=== PATIENT | female | born 1955 | race Hispanic/Latino ===

== ENCOUNTER 2020-04-28 09:59 | Observation (INO) | payer MEDICARE ==
[2020-04-28] MEDS ORDERED: ASPIRIN 325 MG TAB PO ONE (10:15)
--- NOTE | 2020-04-28 11:23 | XRay Report ---
CHEST 1 VIEW INDICATION: Chest Pain. COMPARISON: None FINDINGS: Support devices: None. Heart: Within normal limits. Lungs/Pleura: No acute air space or interstitial disease. Additional findings: None. IMPRESSION: No acute findings. Signer Name: Erik Hsu Jr, MD Signed: 04/28/2020 11:19 AM Workstation Name: [id number]
[2020-04-28 11:29] LABS: Basophils % (Auto) 0.8 % (0.0-1.8); Eosinophils # (Auto) 0.2 K/mm3 (0.0-0.4); Eosinophils % (Auto) 4.2 % (0.0-4.3); Hematocrit 41.3 % (30.3-42.9); Hemoglobin 13.8 gm/dl (10.1-14.3); Lymphocytes # (Auto) 1.8 K/mm3 (1.2-5.4); Lymphocytes % (Auto) 41.2 % (13.4-35.0); Mean Corpuscular HGB Conc 33 % (30-34); Mean Corpuscular Volume 91 fl (79-97); Monocytes # (Auto) 0.4 K/mm3 (0.0-0.8); Monocytes % (Auto) 9.5 % (0.0-7.3); Platelet Count 190 K/mm3 (140-440); Red Blood Count 4.56 M/mm3 (3.65-5.03); Red Cell Distribution Width 14.6 % (13.2-15.2)
[2020-04-28 11:47] LABS: Blood Urea Nitrogen 11 mg/dL (7-17); Calcium 9.3 mg/dL (8.4-10.2); Hemolysis Index 1
[2020-04-28 11:49] LABS: BUN/Creatinine Ratio 18
[2020-04-28 11:53] LABS: Alanine Aminotransferase 30 units/L (7-56)
[2020-04-28 11:54] LABS: Bilirubin,Direct < 0.2 mg/dL (0-0.2)
--- NOTE | 2020-04-28 14:59 | Event Note ---
ED Screening Note Date of service: 04/28/20 Time: 14:59 ED Screening Note: c/o chest pain, dizziness, and LUQ pain This initial assessment/diagnostic orders/clinical plan/treatment(s) is/are subject to change based on patients health status, clinical progression and re- assessment by fellow clinical providers in the ED. Further treatment and workup at subsequent clinical providers discretion. Patient/guardian urged not to elope from the ED as their condition may be serious if not clinically assessed and managed. Initial orders include: labs cxr ekg
[2020-04-28] MEDS ORDERED: ACETAMINOPHEN 325 MG TAB PO ONE (16:47)
[2020-04-28] MEDS ORDERED: FAMOTIDINE 20 MG TAB PO ONE (16:47)
[2020-04-28] MEDS ORDERED: MECLIZINE 25 MG TAB PO ONE (16:48)
--- NOTE | 2020-04-28 16:49 | Emergency Department Report ---
ED General Adult HPI - General Chief complaint: Chest Pain Stated complaint: DIZZY PUI?: No Time Seen by Provider: 04/28/20 16:29 Source: patient, RN notes reviewed Mode of arrival: Ambulatory Limitations: Physical Limitation - History of Present Illness Initial comments: The patient was evaluated in the emergency department for symptoms described in the history of present illness. He/she was evaluated in the context of the g lobal COVID-19 pandemic, which necessitated consideration that the patient might be at risk for infection with the virus that causes COVID-19. Institutional protocols and algorithms that pertain to the evaluation of patients at risk for COVID-19 are in a state of rapid change based on information released by regulatory bodies including the CDC and federal and state organizations. These policies and algorithms were followed during the patient's care in the emergency department. Please note that these policies, procedures and recommendations changed on a rapid basis. Patient is a 65-year-old female. She is not known to myself previously. She recently moved here from [facility]. She has a primary care doctor, but she cannot recall their name. She reports a history of hypertension, high cholesterol, congestive heart failure, does not know her ejection fraction, seizures. She presents to the ER today with a primary complaint of dizziness and feeling unsteady on her feet. This is a constant sensation, and present for the past 6 to 7 days. Denies headache, neck pain, loss of hearing. The patient also complains of left-sided chest wall pain, which moves to the left neck, left back, left superior pectoral region. Denies loss of vision, abdominal pain, irritative and obstructive urinary symptoms. No DVT or pulmonary embolism risk factors. -: Gradual Location: chest Radiation: back Quality: aching Consistency: intermittent Improves with: rest Worsens with: movement - Related Data Home Medications Medication Instructions Recorded Confirmed Last Taken Aspirin [Adult Aspirin] 81 mg PO DAILY 04/28/20 04/28/20 Unknown Atorvastatin [Lipitor Tab] 40 mg PO QHS 04/28/20 04/28/20 Unknown Diclofenac Sodium 75 mg PO DAILY 04/28/20 04/28/20 Unknown Escitalopram Oxalate [Lexapro] 20 mg PO DAILY 04/28/20 04/28/20 Unknown Phenytoin Sodium Extended (Nf) 30 mg PO DAILY 04/28/20 04/28/20 Unknown [Dilantin (Nf)] Potassium Chloride [K-Dur] 10 meq PO QDAY 04/28/20 04/28/20 Unknown levETIRAcetam [Spritam] 500 mg PO DAILY 04/28/20 04/28/20 Unknown Allergies Allergy/AdvReac Type Severity Reaction Status Date / Time No Known Allergies Allergy Unverified 04/28/20 10:11 ED Review of Systems ROS: Stated complaint: DIZZY Other details as noted in HPI Constitutional: denies: fever Eyes: denies: eye discharge, vision change ENT: denies: throat pain, dental pain Respiratory: denies: cough, wheezing Cardiovascular: chest pain Gastrointestinal: abdominal pain. denies: vomiting Neurological: weakness, abnormal gait Hematological/Lymphatic: denies: easy bleeding ED Past Medical Hx - Past Medical History Previous Medical History?: Yes Hx Hypertension: Yes Hx Congestive Heart Failure: Yes Hx Seizures: Yes - Surgical History Past Surgical History?: Yes Additional Surgical History: hysterectomy - Social History Smoking Status: Current Every Day Smoker Substance Use Type: None - Medications Home Medications: Home Medications Medication Instructions Recorded Confirmed Last Taken Type Aspirin [Adult Aspirin] 81 mg PO DAILY 04/28/20 04/28/20 Unknown History Atorvastatin [Lipitor Tab] 40 mg PO QHS 04/28/20 04/28/20 Unknown History Diclofenac Sodium 75 mg PO DAILY 04/28/20 04/28/20 Unknown History Escitalopram Oxalate [Lexapro] 20 mg PO DAILY 04/28/20 04/28/20 Unknown History Phenytoin Sodium Extended (Nf) 30 mg PO DAILY 04/28/20 04/28/20 Unknown History [Dilantin (Nf)] Potassium Chloride [K-Dur] 10 meq PO QDAY 04/28/20 04/28/20 Unknown History levETIRAcetam [Spritam] 500 mg PO DAILY 04/28/20 04/28/20 Unknown History ED Physical Exam - General Limitations: Physical Limitation General appearance: alert, in no apparent distress - Head Head exam: Present: atraumatic, normocephalic - Eye Eye exam: Present: normal appearance, PERRL, EOMI, other (Visual acuity intact to finger counting, color perception, reading at a close distance). Absent: nystagmus - ENT ENT exam: Present: normal exam, normal orophraynx, mucous membranes moist, TM's normal bilaterally, normal external ear exam, other (There is no mastoid te nderness) - Neck Neck exam: Present: normal inspection, full ROM. Absent: tenderness, meningismus - Respiratory Respiratory exam: Present: normal lung sounds bilaterally, chest wall tenderness (Reproducible left-sided chest wall pain. Chaperoned by nurse Marga Laird). Absent: respiratory distress - Cardiovascular Cardiovascular Exam: Present: normal rhythm, bradycardia, normal heart sounds. Absent: systolic murmur, diastolic murmur, rubs, gallop - GI/Abdominal GI/Abdominal exam: Present: soft, normal bowel sounds. Absent: distended, t enderness, guarding, rebound, rigid, pulsatile mass - Extremities Exam Extremities exam: Present: normal inspection, full ROM, pedal edema, other (2+ pulses noted in the bilateral upper and lower extremities. There is no palpable cord. negative Homans sign. Muscular compartments are soft. The pelvis is stable.). Absent: calf tenderness - Back Exam Back exam: Present: normal inspection, full ROM. Absent: tenderness, CVA tenderness (R), CVA tenderness (L), paraspinal tenderness, vertebral tenderness - Neurological Exam Neurological exam: Present: alert, abnormal gait (Walks with a broad-based gait and a walker), other (No facial droop. Tongue midline. Extraocular movements intact bilaterally. Facial sensation intact to light touch in V1, V2, V3 distribution bilaterally. 5 and a 5 strength in 4 extremities. Sensation intact to light touch in 4 extremities. There is past-pointing in her bilateral upper extremities. [id number] within normal limits.). Absent: motor sensory deficit - Psychiatric Psychiatric exam: Present: normal affect, normal mood - Skin Skin exam: Present: warm, dry, intact, normal color. Absent: rash ED Course Vital Signs 04/28/20 04/28/20 04/28/20 10:15 16:12 16:46 Temperature 97.8 F Pulse Rate 67 59 L 50 L Respiratory 16 15 15 Rate Blood Pressure 142/62 Blood Pressure 132/80 113/52 [Right] O2 Sat by Pulse 98 100 98 Oximetry 04/28/20 17:30 Temperature Pulse Rate Respiratory Rate Blood Pressure 147/58 Blood Pressure [Right] O2 Sat by Pulse 95 Oximetry ED Medical Decision Making - Lab Data Result diagrams: 04/28/20 10:57 04/28/20 11:00 Vital Signs 04/28/20 04/28/20 04/28/20 10:15 16:12 16:46 Temperature 97.8 F Pulse Rate 67 59 L 50 L Respiratory 16 15 15 Rate Blood Pressure 142/62 Blood Pressure 132/80 113/52 [Right] O2 Sat by Pulse 98 100 98 Oximetry 04/28/20 17:30 Temperature Pulse Rate Respiratory Rate Blood Pressure 147/58 Blood Pressure [Right] O2 Sat by Pulse 95 Oximetry Lab Results 04/28/20 04/28/20 04/28/20 Range/Units 10:57 11:00 11:00 WBC 4.4 L (4.5-11.0) K/mm3 RBC 4.56 (3.65-5.03) M/mm3 Hgb 13.8 (10.1-14.3) gm/dl Hct 41.3 (30.3-42.9) % MCV 91 (79-97) fl MCH 30 (28-32) pg MCHC 33 (30-34) % RDW 14.6 (13.2-15.2) % Plt Count 190 (140-440) K/mm3 Lymph % (Auto) 41.2 H (13.4-35.0) % Stark % (Auto) 9.5 H (0.0-7.3) % Eos % (Auto) 4.2 (0.0-4.3) % Baso % (Auto) 0.8 (0.0-1.8) % Lymph # 1.8 (1.2-5.4) K/mm3 Stark # 0.4 (0.0-0.8) K/mm3 Eos # 0.2 (0.0-0.4) K/mm3 Baso # 0.0 (0.0-0.1) K/mm3 Seg Neutrophils % 44.3 (40.0-70.0) % Seg Neutrophils # 2.0 (1.8-7.7) K/mm3 PT (12.2-14.9) Sec. INR (0.87-1.13) D-Dimer (0-234) ng/mlDDU Sodium 141 (137-145) mmol/L Potassium 3.7 (3.6-5.0) mmol/L Chloride 101.9 (98-107) mmol/L Carbon Dioxide 26 (22-30) mmol/L Anion Gap 17 mmol/L BUN 11 (7-17) mg/dL Creatinine 0.6 (0.6-1.2) mg/dL Estimated GFR > 60 ml/min BUN/Creatinine Ratio 18 % Glucose 117 H (65-100) mg/dL Calcium 9.3 (8.4-10.2) mg/dL Magnesium (1.7-2.3) mg/dL Total Bilirubin 0.30 (0.1-1.2) mg/dL Direct Bilirubin < 0.2 (0-0.2) mg/dL Indirect Bilirubin 0.1 mg/dL AST 21 (5-40) units/L ALT 30 (7-56) units/L Alkaline Phosphatase 251 H (35-129) units/L Total Creatine Kinase (30-135) units/L Troponin T < 0.010 (0.00-0.029) ng/mL NT-Pro-B Natriuret Pep 109.4 (0-900) pg/mL Total Protein 7.0 (6.3-8.2) g/dL Albumin 4.0 (3.9-5) g/dL Albumin/Globulin Ratio 1.3 % Lipase (13-60) units/L TSH (0.270-4.200) mlU/mL Urine Color (Yellow) Urine Turbidity (Clear) Urine pH (5.0-7.0) Ur Specific [place] (1.003-1.030) Urine Protein (Negative) mg/dL Urine Glucose (UA) (Negative) mg/dL Urine Ketones (Negative) mg/dL Urine Blood (Negative) Urine Nitrite (Negative) Urine Bilirubin (Negative) Urine Urobilinogen (<2.0) mg/dL Ur Leukocyte Esterase (Negative) Urine WBC (Auto) (0.0-6.0) /HPF Urine RBC (Auto) (0.0-6.0) /HPF U Epithel Cells (Auto) (0-13.0) /HPF Urine Bacteria (Auto) (Negative) /HPF Urine Mucus /HPF 04/28/20 04/28/20 04/28/20 Range/Units 16:08 16:08 16:54 WBC (4.5-11.0) K/mm3 RBC (3.65-5.03) M/mm3 Hgb (10.1-14.3) gm/dl Hct (30.3-42.9) % MCV (79-97) fl MCH (28-32) pg MCHC (30-34) % RDW (13.2-15.2) % Plt Count (140-440) K/mm3 Lymph % (Auto) (13.4-35.0) % Stark % (Auto) (0.0-7.3) % Eos % (Auto) (0.0-4.3) % Baso % (Auto) (0.0-1.8) % Lymph # (1.2-5.4) K/mm3 Stark # (0.0-0.8) K/mm3 Eos # (0.0-0.4) K/mm3 Baso # (0.0-0.1) K/mm3 Seg Neutrophils % (40.0-70.0) % Seg Neutrophils # (1.8-7.7) K/mm3 PT 13.7 (12.2-14.9) Sec. INR 1.03 (0.87-1.13) D-Dimer 135.30 (0-234) ng/mlDDU Sodium (137-145) mmol/L Potassium (3.6-5.0) mmol/L Chloride (98-107) mmol/L Carbon Dioxide (22-30) mmol/L Anion Gap mmol/L BUN (7-17) mg/dL Creatinine (0.6-1.2) mg/dL Estimated GFR ml/min BUN/Creatinine Ratio % Glucose (65-100) mg/dL Calcium (8.4-10.2) mg/dL Magnesium (1.7-2.3) mg/dL Total Bilirubin (0.1-1.2) mg/dL Direct Bilirubin (0-0.2) mg/dL Indirect Bilirubin mg/dL AST (5-40) units/L ALT (7-56) units/L Alkaline Phosphatase (35-129) units/L Total Creatine Kinase (30-135) units/L Troponin T < 0.010 (0.00-0.029) ng/mL NT-Pro-B Natriuret Pep (0-900) pg/mL Total Protein (6.3-8.2) g/dL Albumin (3.9-5) g/dL Albumin/Globulin Ratio % Lipase 13 (13-60) units/L TSH (0.270-4.200) mlU/mL Urine Color (Yellow) Urine Turbidity (Clear) Urine pH (5.0-7.0) Ur Specific [place] (1.003-1.030) Urine Protein (Negative) mg/dL Urine Glucose (UA) (Negative) mg/dL Urine Ketones (Negative) mg/dL Urine Blood (Negative) Urine Nitrite (Negative) Urine Bilirubin (Negative) Urine Urobilinogen (<2.0) mg/dL Ur Leukocyte Esterase (Negative) Urine WBC (Auto) (0.0-6.0) /HPF Urine RBC (Auto) (0.0-6.0) /HPF U Epithel Cells (Auto) (0-13.0) /HPF Urine Bacteria (Auto) (Negative) /HPF Urine Mucus /HPF 04/28/20 04/28/20 04/28/20 Range/Units 16:54 16:54 17:44 WBC (4.5-11.0) K/mm3 RBC (3.65-5.03) M/mm3 Hgb (10.1-14.3) gm/dl Hct (30.3-42.9) % MCV (79-97) fl MCH (28-32) pg MCHC (30-34) % RDW (13.2-15.2) % Plt Count (140-440) K/mm3 Lymph % (Auto) (13.4-35.0) % Stark % (Auto) (0.0-7.3) % Eos % (Auto) (0.0-4.3) % Baso % (Auto) (0.0-1.8) % Lymph # (1.2-5.4) K/mm3 Stark # (0.0-0.8) K/mm3 Eos # (0.0-0.4) K/mm3 Baso # (0.0-0.1) K/mm3 Seg Neutrophils % (40.0-70.0) % Seg Neutrophils # (1.8-7.7) K/mm3 PT (12.2-14.9) Sec. INR (0.87-1.13) D-Dimer (0-234) ng/mlDDU Sodium (137-145) mmol/L Potassium (3.6-5.0) mmol/L Chloride (98-107) mmol/L Carbon Dioxide (22-30) mmol/L Anion Gap mmol/L BUN (7-17) mg/dL Creatinine (0.6-1.2) mg/dL Estimated GFR ml/min BUN/Creatinine Ratio % Glucose (65-100) mg/dL Calcium (8.4-10.2) mg/dL Magnesium 2.20 (1.7-2.3) mg/dL Total Bilirubin (0.1-1.2) mg/dL Direct Bilirubin (0-0.2) mg/dL Indirect Bilirubin mg/dL AST (5-40) units/L ALT (7-56) units/L Alkaline Phosphatase (35-129) units/L Total Creatine Kinase 58 (30-135) units/L Troponin T (0.00-0.029) ng/mL NT-Pro-B Natriuret Pep (0-900) pg/mL Total Protein (6.3-8.2) g/dL Albumin (3.9-5) g/dL Albumin/Globulin Ratio % Lipase (13-60) units/L TSH 4.090 (0.270-4.200) mlU/mL Urine Color Straw (Yellow) Urine Turbidity Clear (Clear) Urine pH 6.0 (5.0-7.0) Ur Specific [place] 1.006 (1.003-1.030) Urine Protein <15 mg/dl (Negative) mg/dL Urine Glucose (UA) Neg (Negative) mg/dL Urine Ketones Neg (Negative) mg/dL Urine Blood Sm (Negative) Urine Nitrite Neg (Negative) Urine Bilirubin Neg (Negative) Urine Urobilinogen < 2.0 (<2.0) mg/dL Ur Leukocyte Esterase Neg (Negative) Urine WBC (Auto) 1.0 (0.0-6.0) /HPF Urine RBC (Auto) 1.0 (0.0-6.0) /HPF U Epithel Cells (Auto) 2.0 (0-13.0) /HPF Urine Bacteria (Auto) 1+ (Negative) /HPF Urine Mucus Few /HPF - EKG Data -: EKG Interpreted by Sd EKG shows normal: sinus rhythm Rate: bradycardia - EKG Data When compared to previous EKG there are: previous EKG unavailable 04/28/20 18:20 EKG #1 shows sinus rhythm, bradycardia, left axis deviation, right bundle branch block, left anterior fascicular block, low voltage, not a STEMI. There is no prior for comparison. - Radiology Data Radiology results: pending, report reviewed, image reviewed Differential diagnosis, including but not limited to: GERD, gastritis, hiatal hernia, pneumonia, acute coronary syndrome, pulmonary embolism, peripheral vertigo, central vertigo Assessment and plan: 65-year-old female, who is not currently tachycardic, tachy pneic or hypoxic, with no DVT or pulmonary embolism risk factors, low risk by Wells criteria, with a negative d-dimer, chest pain which is reproducible left- sided, but radiates to the back, abnormal EKG, negative troponin, a number of cardiovascular risk factors, moderate risk for major adverse cardiac event as per heart score, ( 4 points Moderate Score (4-6 points) Risk of MACE of 12-16.6%.) Who also complains of dizziness for 1 week. In terms of the patient's chest pain, we will admit the patient to the medical service for cardiac risk ratification. She will be given aspirin, and we will treat her pain. In terms of the patient's dizziness, uncertain of central versus peripheral cause. Symptoms present for approximately 1 week, therefore, not a TPA candidate. Her examination is not consistent or suggestive of a large vessel occlusion. Discussed plan of care with patient, who verbalized understanding, and who is amenable to this plan of care. Hospital physician, Dr. Syl Lainez to admit Has equal pulses in the upper and lower extremities, not especially hypertensive, unremarkable x-ray of the chest, therefore, this is very unlikely to be aortic disease. Critical care attestation.: If time is entered above; I have spent that time in minutes in the direct care of this critically ill patient, excluding procedure time. ED Disposition Clinical Impression: Acute chest pain, Abnormal EKG, Dizziness Disposition: OP ADMIT IP TO THIS HOSP Is pt being admited?: Yes Does the pt Need Aspirin: No Condition: Good Instructions: Chest Pain (ED) Referrals: PRIMARY CARE, [Primary Care Provider] - 3-5 Days - Assessment Assessment Interval: Baseline - Level of Consciousness 1a. Level of Consciousness: alert/keenly responsive - LOC Questions 1b. LOC Questions: answers both correctly - LOC Command 1c. LOC Commands: performs tasks correctly - Best Gaze 2. Best Gaze: normal - Visual 3. Visual: no visual loss - Facial Palsy 4. Facial Palsy: normal symmetrical movement - Motor Arm 5a. Motor Arm Left: no drift 5b. Motor Arm Right: no drift - Motor Leg 6a. Motor Leg Left: no drift 6b. Motor Leg Right: no drift - Limb Ataxia 7. Limb Ataxia: present 2 limbs - Sensory 8. Sensory: normal - Best Language 9. Best Language: no aphasia - Dysarthria 10. Dysarthria: normal - Extinction and Inattention 11. Extinction/Inattention: no abnormality - Scoring Total Score: 2 Stroke Severity: Minor Stroke
[2020-04-28 17:22] LABS: INR 1.03 (0.87-1.13)
--- NOTE | 2020-04-28 17:34 | Cat Scan Report ---
CT BRAIN: 04/28/2020 INDICATION / CLINICAL INFORMATION: dizzy, unsteady gait. COMPARISON: None available. FINDINGS: BRAIN/INTRACRANIAL STRUCTURES: Unenhanced CT images of the brain demonstrate no evidence of acute int racranial abnormality. Ventricles and sulci are within normal limits of size and shape for a patient of this age. There is no evidence of hemorrhage or mass. There are no abnormal extra-axial fluid collections. EXTRACRANIAL STRUCTURES: Unremarkable. IMPRESSION: No acute abnormality. All CT scans at this location are performed using dose reduction to ALARA by means of automated expos ure control. Signer Name: Ishaan Christiansen MD Signed: 04/28/2020 5:30 PM Workstation Name: [id number]
[2020-04-28 18:05] LABS: Bacteria,Urine 1+ /HPF (Negative); Bilirubin,Urine NEG (Negative); Blood,Urine SM (Negative); Color,Urine Straw (Yellow); Mucus,Urine FEW /HPF; Protein,Urine <15 mg/dL mg/dL (Negative); Urobilinogen,Urine < 2.0 mg/dL (<2.0)
[2020-04-28] MEDS ORDERED: ASPIRIN 81 MG TAB CHEW PO ONE (18:22)
--- NOTE | 2020-04-28 22:18 | History and Physical Report ---
History of Present Illness Date of examination: 04/28/20 Date of admission: 04/28/20 18:24 Chief complaint: Left-sided chest pain since a.m. History of present illness: 65-year-old female with history of seizure disorder, hyperlipidemia, depression comes in for left-sided chest pain since a.m. Chest pain is intermittent in nature. 5 on a scale of 1-10. Dull in character. Patient also has dizziness and slightly unsteady gait. Dizziness is been going on for 1 week. No shortness of breath no diaphoresis no radiation of chest pain. No precipitating or exacerbating factors for the chest pain. - Past Medical History Previous Medical History?: Yes Hx Hypertension: Yes Hx Congestive Heart Failure: Yes Hx Seizures: Yes - Surgical History Past Surgical History?: Yes Additional Surgical History: hysterectomy - Social History Smoking Status: Current Every Day Smoker Substance Use Type: None - Medications Home Medications: Home Medications Medication Instructions Recorded Confirmed Last Taken Type Aspirin [Adult Aspirin] 81 mg PO DAILY 04/28/20 04/28/20 Unknown History Atorvastatin [Lipitor Tab] 40 mg PO QHS 04/28/20 04/28/20 Unknown History Diclofenac Sodium 75 mg PO DAILY 04/28/20 04/28/20 Unknown History Escitalopram Oxalate [Lexapro] 20 mg PO DAILY 04/28/20 04/28/20 Unknown History Phenytoin Sodium Extended (Nf) 30 mg PO DAILY 04/28/20 04/28/20 Unknown History [Dilantin (Nf)] Potassium Chloride [K-Dur] 10 meq PO QDAY 04/28/20 04/28/20 Unknown History levETIRAcetam [Spritam] 500 mg PO DAILY 04/28/20 04/28/20 Unknown History Review of Systems ROS: Stated complaint: DIZZY Other details as noted in HPI Constitutional: denies: fever Eyes: denies: eye discharge, vision change ENT: denies: throat pain, dental pain Respiratory: denies: cough, wheezing Cardiovascular: chest pain Gastrointestinal: abdominal pain. denies: vomiting Neurological: weakness, abnormal gait Hematological/Lymphatic: denies: easy bleeding 40 Medications and Allergies Allergies Allergy/AdvReac Type Severity Reaction Status Date / Time No Known Allergies Allergy Unverified 04/28/20 10:11 Home Medications Medication Instructions Recorded Confirmed Last Taken Type Aspirin [Adult Aspirin] 81 mg PO DAILY 04/28/20 04/28/20 Unknown History Atorvastatin [Lipitor Tab] 40 mg PO QHS 04/28/20 04/28/20 Unknown History Diclofenac Sodium 75 mg PO DAILY 04/28/20 04/28/20 Unknown History Escitalopram Oxalate [Lexapro] 20 mg PO DAILY 04/28/20 04/28/20 Unknown History Phenytoin Sodium Extended (Nf) 30 mg PO DAILY 04/28/20 04/28/20 Unknown History [Dilantin (Nf)] Potassium Chloride [K-Dur] 10 meq PO QDAY 04/28/20 04/28/20 Unknown History levETIRAcetam [Spritam] 500 mg PO DAILY 04/28/20 04/28/20 Unknown History Exam - Constitutional Vitals: Temp Pulse Resp BP Pulse Ox 97.5 F L 44 L 18 134/74 99 04/28/20 20:25 04/28/20 20:25 04/28/20 20:25 04/28/20 20:25 04/28/20 20:25 General appearance: Present: no acute distress, well-nourished - EENT Eyes: Present: PERRL ENT: hearing intact, clear oral mucosa - Neck Neck: Present: supple, normal ROM - Respiratory Respiratory effort: normal Respiratory: bilateral: CTA - Cardiovascular Heart rate: 88 Rhythm: regular Heart Sounds: Present: S1 & S2. Absent: rub, click - Extremities Extremities: no ischemia, pulses intact, pulses symmetrical, No edema Peripheral Pulses: within normal limits - Abdominal General gastrointestinal: Present: soft, non-tender, non-distended, normal bowel sounds Female genitourinary: Present: normal - Integumentary Integumentary: Present: clear, warm, dry - Musculoskeletal Musculoskeletal: gait normal, strength equal bilaterally - Psychiatric Psychiatric: appropriate mood/affect, intact judgment & insight - Neurologic Neurologic: CNII-XII intact, moves all extremities - Allied Health Allied health notes reviewed: nursing, case management HEART Score - HEART Score History: Moderately suspicious Age: > 65 Risk factors: 1-2 risk factors Troponin: Troponin T < 0.010 ng/mL (0.00-0.029) 04/28/20 16:08 Troponin: 1-3x normal limit - Critical Actions Critical Actions: 4-6 pts:12-16.6% risk of adverse cardiac event. Should be admitted Results - Labs CBC & Chem 7: 04/28/20 10:57 04/29/20 06:45 Labs: Laboratory Last Values WBC 4.4 K/mm3 (4.5-11.0) L 04/28/20 10:57 RBC 4.56 M/mm3 (3.65-5.03) 04/28/20 10:57 Hgb 13.8 gm/dl (10.1-14.3) 04/28/20 10:57 Hct 41.3 % (30.3-42.9) 04/28/20 10:57 MCV 91 fl (79-97) 04/28/20 10:57 MCH 30 pg (28-32) 04/28/20 10:57 MCHC 33 % (30-34) 04/28/20 10:57 RDW 14.6 % (13.2-15.2) 04/28/20 10:57 Plt Count 190 K/mm3 (140-440) 04/28/20 10:57 Lymph % (Auto) 41.2 % (13.4-35.0) H 04/28/20 10:57 [place] % (Auto) 9.5 % (0.0-7.3) H 04/28/20 10:57 Eos % (Auto) 4.2 % (0.0-4.3) 04/28/20 10:57 Baso % (Auto) 0.8 % (0.0-1.8) 04/28/20 10:57 Lymph # 1.8 K/mm3 (1.2-5.4) 04/28/20 10:57 [place] # 0.4 K/mm3 (0.0-0.8) 04/28/20 10:57 Eos # 0.2 K/mm3 (0.0-0.4) 04/28/20 10:57 Baso # 0.0 K/mm3 (0.0-0.1) 04/28/20 10:57 Seg Neutrophils % 44.3 % (40.0-70.0) 04/28/20 10:57 Seg Neutrophils # 2.0 K/mm3 (1.8-7.7) 04/28/20 10:57 PT 13.7 Sec. (12.2-14.9) 04/28/20 16:54 INR 1.03 (0.87-1.13) 04/28/20 16:54 D-Dimer 135.30 ng/mlDDU (0-234) 04/28/20 16:54 Sodium 141 mmol/L (137-145) 04/28/20 11:00 Potassium 3.7 mmol/L (3.6-5.0) 04/28/20 11:00 Chloride 101.9 mmol/L (98-107) 04/28/20 11:00 Carbon Dioxide 26 mmol/L (22-30) 04/28/20 11:00 Anion Gap 17 mmol/L 04/28/20 11:00 BUN 11 mg/dL (7-17) 04/28/20 11:00 Creatinine 0.6 mg/dL (0.6-1.2) 04/28/20 11:00 Estimated GFR > 60 ml/min 04/28/20 11:00 BUN/Creatinine Ratio 18 % 04/28/20 11:00 Glucose 117 mg/dL (65-100) H 04/28/20 11:00 Calcium 9.3 mg/dL (8.4-10.2) 04/28/20 11:00 Magnesium 2.20 mg/dL (1.7-2.3) 04/28/20 16:54 Total Bilirubin 0.30 mg/dL (0.1-1.2) 04/28/20 11:00 Direct Bilirubin < 0.2 mg/dL (0-0.2) 04/28/20 11:00 Indirect Bilirubin 0.1 mg/dL 04/28/20 11:00 AST 21 units/L (5-40) 04/28/20 11:00 ALT 30 units/L (7-56) 04/28/20 11:00 Alkaline Phosphatase 251 units/L (35-129) H 04/28/20 11:00 Total Creatine Kinase 58 units/L (30-135) 04/28/20 16:54 Troponin T < 0.010 ng/mL (0.00-0.029) 04/28/20 16:08 NT-Pro-B Natriuret Pep 109.4 pg/mL (0-900) 04/28/20 11:00 Total Protein 7.0 g/dL (6.3-8.2) 04/28/20 11:00 Albumin 4.0 g/dL (3.9-5) 04/28/20 11:00 Albumin/Globulin Ratio 1.3 % 04/28/20 11:00 Lipase 13 units/L (13-60) 04/28/20 16:08 TSH 4.090 mlU/mL (0.270-4.200) 04/28/20 16:54 Urine Color Straw (Yellow) 04/28/20 17:44 Urine Turbidity Clear (Clear) 04/28/20 17:44 Urine pH 6.0 (5.0-7.0) 04/28/20 17:44 Ur Specific [place] 1.006 (1.003-1.030) 04/28/20 17:44 Urine Protein <15 mg/dl mg/dL (Negative) 04/28/20 17:44 Urine Glucose (UA) Neg mg/dL (Negative) 04/28/20 17:44 Urine Ketones Neg mg/dL (Negative) 04/28/20 17:44 Urine Blood Sm (Negative) 04/28/20 17:44 Urine Nitrite Neg (Negative) 04/28/20 17:44 Urine Bilirubin Neg (Negative) 04/28/20 17:44 Urine Urobilinogen < 2.0 mg/dL (<2.0) 04/28/20 17:44 Ur Leukocyte Esterase Neg (Negative) 04/28/20 17:44 Urine WBC (Auto) 1.0 /HPF (0.0-6.0) 04/28/20 17:44 Urine RBC (Auto) 1.0 /HPF (0.0-6.0) 04/28/20 17:44 U Epithel Cells (Auto) 2.0 /HPF (0-13.0) 04/28/20 17:44 Urine Bacteria (Auto) 1+ /HPF (Negative) 04/28/20 17:44 Urine Mucus Few /HPF 04/28/20 17:44 Short CBC 04/28/20 Range/Units 10:57 WBC 4.4 L (4.5-11.0) K/mm3 Hgb 13.8 (10.1-14.3) gm/dl Hct 41.3 (30.3-42.9) % Plt Count 190 (140-440) K/mm3 BMP 04/28/20 04/29/20 11:00 06:45 Sodium 141 144 Potassium 3.7 3.7 Chloride 101.9 106.7 Carbon Dioxide 26 25 BUN 11 10 Creatinine 0.6 0.5 L Glucose 117 H 110 H Calcium 9.3 8.8 Cardiac Enzymes 04/28/20 04/28/20 04/28/20 Range/Units 11:00 16:08 16:54 Total Creatine Kinase 58 (30-135) units/L Troponin T < 0.010 < 0.010 (0.00-0.029) ng/mL 04/28/20 04/28/20 04/29/20 Range/Units 21:49 22:58 06:45 Total Creatine Kinase (30-135) units/L Troponin T < 0.010 < 0.010 < 0.010 (0.00-0.029) ng/mL Liver Function 04/28/20 04/29/20 Range/Units 11:00 06:45 Total Bilirubin 0.30 0.20 (0.1-1.2) mg/dL Direct Bilirubin < 0.2 (0-0.2) mg/dL AST 21 20 (5-40) units/L ALT 30 25 (7-56) units/L Alkaline Phosphatase 251 H 212 H (35-129) units/L Albumin 4.0 3.6 L (3.9-5) g/dL Urine 04/28/20 Range/Units 17:44 Urine Color Straw (Yellow) Urine pH 6.0 (5.0-7.0) Ur Specific [place] 1.006 (1.003-1.030) Urine Protein <15 mg/dl (Negative) mg/dL Urine Glucose (UA) Neg (Negative) mg/dL - Imaging and Cardiology EKG: report reviewed (Sinus bradycardia heart rate of 48/min right bundle branch block) Chest x-ray: report reviewed CT Scan - head: report reviewed (No acute abnormalities) [place]/IV: IV Catheter Type [Left Peripheral IV Antecubital] Assessment and Plan Advance Directives: Yes (Full code) VTE prophylaxis?: Chemical Plan of care discussed with patient/family: Yes - Patient Problems (1) Acute chest pain Current Visit: Yes Status: Acute Plan to address problem: Chest pain protocol serial troponins Lexiscan in the morning (2) Dizziness Current Visit: Yes Status: Acute Plan to address problem: Possible labyrinthitis CVA unlikely Dilantin may be causing dizziness Dilantin level ordered Patient on subtherapeutic doses of Dilantin and Keppra Dilantin discontinued Keppra dose increased to 500 every 12 (3) Hyperlipidemia Current Visit: Yes Status: Chronic Qualifiers: Hyperlipidemia type: mixed hyperlipidemia Qualified Code(s): E78.2 - Mixed hyperlipidemia Plan to address problem: We will hold statins for possible myopathy (4) DVT prophylaxis Current Visit: Yes Status: Acute Plan to address problem: On heparin and GI prophylaxis
[2020-04-28] MEDS ORDERED: oxyCODONE /ACETAMINOPHEN 5-325MG TAB PO PRN (22:19)
[2020-04-28] MEDS ORDERED: HYDROmorphone 1 MG/1 ML INJ IV PRN (22:19)
[2020-04-28] MEDS ORDERED: METOCLOPRAMIDE 10 MG/2 ML INJ IV PRN (22:19)
[2020-04-28] MEDS ORDERED: ONDANSETRON 4 MG/2 ML INJ IV PRN (22:19)
[2020-04-28] MEDS ORDERED: ACETAMINOPHEN 325 MG TAB PO PRN (22:19)
[2020-04-28] MEDS ORDERED: SODIUM CHLORIDE 0.9% 1000 ML 1,000 ML IV SCH (22:30)
[2020-04-28] MEDS: HEPARIN 5,000 UNIT/1 ML VIAL SUB-Q SCH (22:58)
[2020-04-29 08:20] LABS: Alanine Aminotransferase 25 units/L (7-56); Albumin 3.6 g/dL (3.9-5); Blood Urea Nitrogen 10 mg/dL (7-17); Calcium 8.8 mg/dL (8.4-10.2); Hemolysis Index 9
[2020-04-29 08:23] LABS: BUN/Creatinine Ratio 20
[2020-04-29] MEDS ORDERED: ESCITALOPRAM 10 MG TAB PO SCH (10:00)
[2020-04-29] MEDS ORDERED: ASPIRIN EC 81 MG TAB PO SCH (10:00)
[2020-04-29] MEDS: REGADENOSON 0.4 MG/5 ML INJ IV ONE ×4 (12:51→13:33)
--- NOTE | 2020-04-29 14:59 | Treadmill Report ---
THALLIUM STRESS TEST LEFT VENTRICLE: Left ventricular chamber size is within normal spread. Perfusion study demonstrates homogeneous uptake of the tracer in all segments, no defects identified. There is normal apical thinning. Gated analysis demonstrates normal left ventricular systolic function, ejection fraction 62%. CONCLUSION: Normal myocardial perfusion study. JOB# [id number] CA/NTS
[2020-04-29] MEDS: FAMOTIDINE 20 MG/2 ML INJ IV SCH ×2 (15:56→23:00)
[2020-04-29] MEDS: HEPARIN 5,000 UNIT/1 ML VIAL SUB-Q SCH ×2 (15:58→21:59)
[2020-04-29] MEDS: levETIRAcetam 500 MG TAB PO SCH ×2 (16:03→21:59)
--- NOTE | 2020-04-29 16:29 | Magnetic Resonance Report ---
MR brain wo con INDICATION / CLINICAL INFORMATION: 65 years Female; TIA/dizziness. TECHNIQUE: Multiplanar, multisequence MR images of the brain were obtained. COMPARISON: The study is compared to the previous CT of 04/28/2020. The motion degrades the image quality despite u sing a fast acquisition sequences. However, there are mild periventricular white matter changes most consistent with mild age-appropriate microvascular angiopathy. The diffusion imaging reveals no evide nce of acute infarction. The ventricular system is within normal limits in size and configuration. There appears be mild incid ental mild hyperostosis frontalis interna. No extra-axial fluid collections or significant mass effec t is identified. FINDINGS: BRAIN / INTRACRANIAL CONTENTS: CRANIOCERVICAL JUNCTION: No significant abnormality. 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 The distal internal carotid arteries demonstrate appropriate signal voids. ORBITS: No significant abnormality of visualized orbits. SINUSES / MASTOIDS: No significant abnormality in the visualized paranasal sinuses or mastoid air robert ls. ADDITIONAL FINDINGS: None. IMPRESSION: 1. The MRI of the brain appears unremarkable for age without evidence of acute infarction. Signer Name: Darwin Camacho MD Signed: 04/29/2020 4:25 PM Workstation Name: [id number]
--- NOTE | 2020-04-29 18:13 | Discharge Summary ---
Providers - Providers Date of Admission: 04/28/20 18:24 Date of discharge: 04/29/20 Attending physician: HITESH NIELSEN Primary care physician: PET AMBASSADOR Hospitalization Condition: Good Pertinent studies: Lexiscan and MRI brain are negative Hospital course: 65-year-old female with history of seizure disorder, hyperlipidemia, depression comes in for left-sided chest pain since a.m. Chest pain is intermittent in nature. 5 on a scale of 1-10. Dull in character. Patient also has dizziness and slightly unsteady gait. Dizziness is been going on for 1 week. No shortness of breath no diaphoresis no radiation of chest pain. No precipitating or exacerbating factors for the chest pain. - Past Medical History Previous Medical History?: Yes Hx Hypertension: Yes Hx Congestive Heart Failure: Yes Hx Seizures: Yes (1) Acute chest pain Current Visit: Yes Status: Acute Plan to address problem: Chest pain protocol serial troponins Lexiscan normal (2) Dizziness Current Visit: Yes Status: Acute Plan to address problem: Possible labyrinthitis CVA unlikely Dilantin may be causing dizziness Dilantin level ordered Patient on subtherapeutic doses of Dilantin and Keppra Dilantin discontinued Keppra dose increased to 500 every 12 (3) Hyperlipidemia Current Visit: Yes Status: Chronic Qualifiers: Hyperlipidemia type: mixed hyperlipidemia Qualified Code(s): E78.2 - Mixed hyperlipidemia Plan to address problem: We will hold statins for possible myopathy (4) DVT prophylaxis Current Visit: Yes Status: Acute Plan to address problem: On heparin and GI prophylaxis Disposition: - TO HOME OR SELFCARE - Discharge Diagnoses (1) Acute chest pain Status: Acute (2) Dizziness Status: Acute (3) Hyperlipidemia Status: Chronic Qualifiers: Hyperlipidemia type: mixed hyperlipidemia Qualified Code(s): E78.2 - Mixed hyperlipidemia (4) DVT prophylaxis Status: Acute Core Measure Documentation - Palliative Care Palliative Care/ Comfort Measures: Not Applicable - Core Measures Any of the following diagnoses?: none Exam - Constitutional Vitals: Temp Pulse Resp BP Pulse Ox 97.7 F 55 L 17 127/50 95 04/29/20 15:51 04/29/20 15:51 04/29/20 15:51 04/29/20 15:51 04/29/20 15:51 General appearance: Present: no acute distress, well-nourished - EENT Eyes: Present: PERRL ENT: hearing intact, clear oral mucosa - Neck Neck: Present: supple, normal ROM - Respiratory Respiratory effort: normal Respiratory: bilateral: CTA - Cardiovascular Heart rate: 78 Rhythm: regular Heart Sounds: Present: S1 & S2. Absent: rub, click - Extremities Extremities: pulses symmetrical, No edema Peripheral Pulses: within normal limits - Abdominal General gastrointestinal: Present: soft, non-tender, non-distended, normal bowel sounds Female genitourinary: Present: normal - Integumentary Integumentary: Present: clear, warm, dry - Musculoskeletal Musculoskeletal: gait normal, strength equal bilaterally - Psychiatric Psychiatric: appropriate mood/affect, intact judgment & insight - Neurologic Neurologic: CNII-XII intact, moves all extremities - Allied Health Allied health notes reviewed: nursing, case management Plan Activity: no restrictions Diet: low cholesterol, low salt Follow up with: PRIMARY MD ROSE [Primary Care Provider] - 3-5 Days SOMMER FUENTES MD [Staff Physician] - 7 Days
[2020-04-30 04:49] VITALS: BP 117/57
== END 2020-04-30 05:27 | disposition home or self-care (01) ==
LOC: ED 09:59 → 4A 18:24
PROVIDERS: ADMIT Internal Medicine; ATTEND Internal Medicine
DX: R07.89 Other chest pain (principal); R42 Dizziness and giddiness; R94.31 Abnormal electrocardiogram [ECG] [EKG]; I11.0 Hypertensive heart disease with heart failure; I50.9 Heart failure, unspecified; E78.5 Hyperlipidemia, unspecified; F17.200 Nicotine dependence, unspecified, uncomplicated; R56.9 Unspecified convulsions; Z90.710 Acquired absence of both cervix and uterus; Z79.82 Long term (current) use of aspirin; Z79.899 Other long term (current) drug therapy
CPT/HCPCS: 36415; 70450; 70551; 71045; 78452; 80048; 80053; 80076; 81001; 82550; 83036; 83690; 83735; 83880; 84443; 84484; 85025; 85379; 85610; 93005; 93017; 96361; 96372; 96374; 99285; A9502; G0378; J1644; J2785; J7030

== ENCOUNTER 2020-06-30 18:29 | Emergency (ER) | payer MEDICARE ==
[2020-06-30 21:26] LABS: Basophils # (Auto) 0.1 K/mm3 (0.0-0.1); Basophils % (Auto) 1.1 % (0.0-1.8); Eosinophils # (Auto) 0.2 K/mm3 (0.0-0.4); Eosinophils % (Auto) 3.4 % (0.0-4.3); Hematocrit 40.5 % (30.3-42.9); Hemoglobin 13.3 gm/dl (10.1-14.3); Lymphocytes # (Auto) 1.9 K/mm3 (1.2-5.4); Lymphocytes % (Auto) 32.7 % (13.4-35.0); Mean Corpuscular HGB Conc 33 % (30-34); Mean Corpuscular Volume 94 fl (79-97); Monocytes # (Auto) 0.5 K/mm3 (0.0-0.8); Monocytes % (Auto) 9.4 % (0.0-7.3); Platelet Count 170 K/mm3 (140-440); Red Blood Count 4.34 M/mm3 (3.65-5.03); Red Cell Distribution Width 13.8 % (13.2-15.2)
[2020-06-30] MEDS ORDERED: levETIRAcetam 1000 MG/NS 0.75% 1,000 MG/100 ML BAG IV ONE (21:28)
--- NOTE | 2020-06-30 21:28 | XRay Report ---
CHEST 1 VIEW 06/30/2020 8:13 PM INDICATION / CLINICAL INFORMATION: Altered Mental Status. COMPARISON: 04/28/2020. FINDINGS: SUPPORT DEVICES: None. HEART / MEDIASTINUM: No significant abnormality. LUNGS / PLEURA: Streaky left basilar atelectasis. No significant pulmonary or pleural abnormality. No pneumothorax. ADDITIONAL FINDINGS: No significant additional findings. IMPRESSION: 1. No acute cardiopulmonary abnormality. Streaky left basilar atelectasis. Signer Name: Marco A Murcia MD Signed: 06/30/2020 9:24 PM Workstation Name: [id number]
[2020-06-30 21:42] LABS: INR 0.89 (0.87-1.13)
[2020-06-30 21:48] LABS: Alanine Aminotransferase 66 units/L (7-56); Albumin 3.7 g/dL (3.9-5); Blood Urea Nitrogen 16 mg/dL (7-17); Calcium 8.8 mg/dL (8.4-10.2); Hemolysis Index 83
[2020-06-30 21:49] LABS: BUN/Creatinine Ratio 23
--- NOTE | 2020-06-30 22:14 | Cat Scan Report ---
CT HEAD WITHOUT CONTRAST INDICATION / CLINICAL INFORMATION: Altered Mental Status. TECHNIQUE: All CT scans at this location are performed using CT dose reduction for ALARA by means of automated e xposure control. COMPARISON: MRI brain dated 04/29/2020. FINDINGS: HEMORRHAGE: None. EXTRA-AXIAL SPACES: Normal in size and morphology for the patient's age. VENTRICULAR SYSTEM: Normal in size and morphology for the patient's age. CEREBRAL PARENCHYMA: No significant abnormality. No acute territorial infarct. MIDLINE SHIFT OR HERNIATION: None. CEREBELLUM / BRAINSTEM: No significant abnormality. ORBITS: Normal as visualized. SOFT TISSUES of HEAD: No significant abnormality. CALVARIUM: No significant abnormality. PARANASAL SINUSES / MASTOID AIR CELLS: Normal as visualized. ADDITIONAL FINDINGS: None. IMPRESSION: 1. No acute intracranial abnormality. Signer Name: Marco A Murcia MD Signed: 06/30/2020 10:09 PM Workstation Name: [id number]
--- NOTE | 2020-06-30 22:47 | Emergency Department Report ---
ED General Adult HPI - General Chief complaint: Altered Mental Status Stated complaint: ALTERED MENTAL STATUS Time Seen by Provider: 06/30/20 19:57 Source: patient, EMS Mode of arrival: Stretcher Limitations: No Limitations - History of Present Illness Initial comments: The patient presents to the emergency department initially for 4 chief complaint altered mental status per EMS. Upon the patient's arrival she was slow answering questions seen a little confused. Upon further discussion with the patient cognition change and she informed that she has a history of seizures and thinks she possibly had a seizure. Per EMS the patient was at home with her roommate when she began to stare off into space and passed out. But the patient states that normally what happens right before she has a seizure. 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 Patient complains of a mild headache now but denies any chest pain or shortness of breath. -: Sudden Location: head Severity scale (0 -10): 1 Consistency: now resolved Improves with: none Worsens with: none Associated Symptoms: denies other symptoms Treatments Prior to Arrival: none - Related Data Previous Rx's Medication Instructions Recorded Last Taken Type Aspirin EC [Halfprin EC] 81 mg PO DAILY #100 tablet 04/29/20 Unknown Rx Escitalopram Oxalate [Lexapro] 20 mg PO DAILY #30 04/29/20 Unknown Rx levETIRAcetam [Keppra TAB] 500 mg PO BID #60 tablet 04/29/20 Unknown Rx Allergies Allergy/AdvReac Type Severity Reaction Status Date / Time No Known Allergies Allergy Unverified 04/28/20 10:11 ED Review of Systems ROS: Stated complaint: ALTERED MENTAL STATUS Other details as noted in HPI Comment: All other systems reviewed and negative Constitutional: denies: chills, fever Eyes: denies: eye pain, eye discharge, vision change ENT: denies: ear pain, throat pain Respiratory: denies: cough, shortness of breath, wheezing Cardiovascular: denies: chest pain, palpitations Endocrine: no symptoms reported Gastrointestinal: denies: abdominal pain, nausea, diarrhea Genitourinary: denies: urgency, dysuria, discharge Musculoskeletal: denies: back pain, joint swelling, arthralgia Skin: denies: rash, lesions Neurological: denies: headache, weakness, paresthesias Psychiatric: denies: anxiety, depression Hematological/Lymphatic: denies: easy bleeding, easy bruising ED Past Medical Hx - Past Medical History Hx Hypertension: Yes Hx Congestive Heart Failure: Yes Hx Seizures: Yes Hx Psychiatric Treatment: Yes (depression) - Surgical History Additional Surgical History: hysterectomy - Social History Smoking Status: Unknown if ever smoked - Medications Home Medications: Home Medications Medication Instructions Recorded Confirmed Last Taken Type Aspirin EC [Halfprin EC] 81 mg PO DAILY #100 tablet 04/29/20 Unknown Rx Escitalopram Oxalate [Lexapro] 20 mg PO DAILY #30 04/29/20 Unknown Rx levETIRAcetam [Keppra TAB] 500 mg PO BID #60 tablet 04/29/20 Unknown Rx ED Physical Exam - General Limitations: No Limitations General appearance: alert, in no apparent distress - Head Head exam: Present: atraumatic, normocephalic - Eye Eye exam: Present: normal appearance, PERRL - ENT ENT exam: Present: mucous membranes moist - Neck Neck exam: Present: normal inspection - Respiratory Respiratory exam: Present: normal lung sounds bilaterally. Absent: respiratory distress - Cardiovascular Cardiovascular Exam: Present: regular rate, normal rhythm. Absent: systolic murmur, diastolic murmur, rubs, gallop - GI/Abdominal GI/Abdominal exam: Present: soft, normal bowel sounds. Absent: distended, tenderness - Extremities Exam Extremities exam: Present: normal inspection - Back Exam Back exam: Present: normal inspection - Neurological Exam Neurological exam: Present: alert, oriented X3, CN II-XII intact. Absent: motor sensory deficit - Psychiatric Psychiatric exam: Present: normal affect, normal mood - Skin Skin exam: Present: warm, dry, intact, normal color. Absent: rash ED Course Vital Signs 06/30/20 06/30/20 19:47 19:54 Temperature 98.1 F Pulse Rate 56 L Respiratory 19 18 Rate Blood Pressure 124/63 [Left] O2 Sat by Pulse 96 98 Oximetry ED Medical Decision Making - Lab Data Result diagrams: 06/30/20 21:08 06/30/20 21:08 Lab Results 06/30/20 06/30/20 06/30/20 Range/Units 21:08 21:08 21:08 WBC 5.7 (4.5-11.0) K/mm3 RBC 4.34 (3.65-5.03) M/mm3 Hgb 13.3 (10.1-14.3) gm/dl Hct 40.5 (30.3-42.9) % MCV 94 (79-97) fl MCH 31 (28-32) pg MCHC 33 (30-34) % RDW 13.8 (13.2-15.2) % Plt Count 170 (140-440) K/mm3 Lymph % (Auto) 32.7 (13.4-35.0) % Tyrrell % (Auto) 9.4 H (0.0-7.3) % Eos % (Auto) 3.4 (0.0-4.3) % Baso % (Auto) 1.1 (0.0-1.8) % Lymph # (Auto) 1.9 (1.2-5.4) K/mm3 Tyrrell # (Auto) 0.5 (0.0-0.8) K/mm3 Eos # (Auto) 0.2 (0.0-0.4) K/mm3 Baso # (Auto) 0.1 (0.0-0.1) K/mm3 Seg Neutrophils % 53.4 (40.0-70.0) % Seg Neutrophils # 3.1 (1.8-7.7) K/mm3 PT 12.2 (12.2-14.9) Sec. INR 0.89 (0.87-1.13) APTT 20.0 L (24.2-36.6) Sec. Sodium 138 (137-145) mmol/L Potassium 4.2 (3.6-5.0) mmol/L Chloride 102.7 (98-107) mmol/L Carbon Dioxide 24 (22-30) mmol/L Anion Gap 16 mmol/L BUN 16 (7-17) mg/dL Creatinine 0.7 (0.6-1.2) mg/dL Estimated GFR > 60 ml/min BUN/Creatinine Ratio 23 % Glucose 111 H (65-100) mg/dL Lactic Acid (0.7-2.0) mmol/L Calcium 8.8 (8.4-10.2) mg/dL Total Bilirubin 0.20 (0.1-1.2) mg/dL AST 56 H (5-40) units/L ALT 66 H (7-56) units/L Alkaline Phosphatase 260 H (35-129) units/L Ammonia (25-60) umol/L Troponin T < 0.010 (0.00-0.029) ng/mL Total Protein 6.7 (6.3-8.2) g/dL Albumin 3.7 L (3.9-5) g/dL Albumin/Globulin Ratio 1.2 % 06/30/20 06/30/20 Range/Units 21:08 21:08 WBC (4.5-11.0) K/mm3 RBC (3.65-5.03) M/mm3 Hgb (10.1-14.3) gm/dl Hct (30.3-42.9) % MCV (79-97) fl MCH (28-32) pg MCHC (30-34) % RDW (13.2-15.2) % Plt Count (140-440) K/mm3 Lymph % (Auto) (13.4-35.0) % Tyrrell % (Auto) (0.0-7.3) % Eos % (Auto) (0.0-4.3) % Baso % (Auto) (0.0-1.8) % Lymph # (Auto) (1.2-5.4) K/mm3 Tyrrell # (Auto) (0.0-0.8) K/mm3 Eos # (Auto) (0.0-0.4) K/mm3 Baso # (Auto) (0.0-0.1) K/mm3 Seg Neutrophils % (40.0-70.0) % Seg Neutrophils # (1.8-7.7) K/mm3 PT (12.2-14.9) Sec. INR (0.87-1.13) APTT (24.2-36.6) Sec. Sodium (137-145) mmol/L Potassium (3.6-5.0) mmol/L Chloride (98-107) mmol/L Carbon Dioxide (22-30) mmol/L Anion Gap mmol/L BUN (7-17) mg/dL Creatinine (0.6-1.2) mg/dL Estimated GFR ml/min BUN/Creatinine Ratio % Glucose (65-100) mg/dL Lactic Acid 0.90 (0.7-2.0) mmol/L Calcium (8.4-10.2) mg/dL Total Bilirubin (0.1-1.2) mg/dL AST (5-40) units/L ALT (7-56) units/L Alkaline Phosphatase (35-129) units/L Ammonia 29.0 (25-60) umol/L Troponin T (0.00-0.029) ng/mL Total Protein (6.3-8.2) g/dL Albumin (3.9-5) g/dL Albumin/Globulin Ratio % - Radiology Data Radiology results: report reviewed - Medical Decision Making Discussed results and plan of care with patient Initially it was thought that the patient presented to the emergency department for altered mental status and due to her postictal state we were not able to obtain history from her thus the extensive work-up. Upon the patient being in emergency department and reexamined it was discovered that she did have a history of seizures and takes Keppra at home. In lieu of these findings the initial work-up had already been started such as imaging and laboratory studies Critical care attestation.: If time is entered above; I have spent that time in minutes in the direct care of this critically ill patient, excluding procedure time. ED Disposition Clinical Impression: Seizure Disposition: DC-01 TO HOME OR SELFCARE Is pt being admited?: No Does the pt Need Aspirin: No Condition: Stable Instructions: Seizure, Adult Additional Instructions: return if worse Referrals: PRIMARY CARE, [Primary Care Provider] - 3-5 Days [facility] KAUR MD [Staff Physician] - 3-5 Days Time of Disposition: 00:18
[2020-07-01 00:36] VITALS: BP 114/62
== END 2020-07-01 10:22 | disposition home or self-care (01) ==
LOC: ED 18:29
DX: R56.9 Unspecified convulsions (principal); I11.0 Hypertensive heart disease with heart failure; I50.9 Heart failure, unspecified; F32.9 Major depressive disorder, single episode, unspecified; Z90.710 Acquired absence of both cervix and uterus; Z79.899 Other long term (current) drug therapy
CPT/HCPCS: 36415; 70450; 71045; 80053; 82140; 84484; 85025; 85610; 85730; 87040; 87086; 96374; 99285; J1953

== ENCOUNTER 2020-10-23 18:52 | Emergency (ER) | payer MEDICARE ==
[2020-10-23 19:19] VITALS: BP 128/54
--- NOTE | 2020-10-23 20:59 | Emergency Department Report ---
ED General Adult HPI - General Chief complaint: Skin Rash Stated complaint: BREAKING OUT/ITCHY Time Seen by Provider: 10/23/20 19:47 Source: patient Mode of arrival: Ambulatory Limitations: No Limitations - History of Present Illness Initial comments: 65 yo F pt presents with complaints of itchy rash to the arms and neck x 1 week. She denies trying any OTC meds for her symptoms. Rash is non painful per pt. SHe also denies any drainage from the rash or fever/chills/sweats. - Related Data Previous Rx's Medication Instructions Recorded Last Taken Type Aspirin EC [Halfprin EC] 81 mg PO DAILY #100 tablet 04/29/20 Unknown Rx Escitalopram Oxalate [Lexapro] 20 mg PO DAILY #30 04/29/20 Unknown Rx levETIRAcetam [Keppra TAB] 500 mg PO BID #60 tablet 04/29/20 Unknown Rx Permethrin 5% [Acticin 5% CREAM] 1 applicatio TP ONCE #1 tube 10/23/20 Unknown Rx Prednisone [predniSONE 5 mg (6-Day 5 mg PO .TAPER #1 tab.ds.pk 10/23/20 Unknown Rx Pack, 21 Tabs)] Allergies Allergy/AdvReac Type Severity Reaction Status Date / Time No Known Allergies Allergy Unverified 04/28/20 10:11 ED Review of Systems ROS: Stated complaint: BREAKING OUT/ITCHY Other details as noted in HPI Constitutional: denies: diaphoresis, fever, malaise Respiratory: denies: cough, shortness of breath Gastrointestinal: denies: abdominal pain Musculoskeletal: denies: back pain Skin: rash. denies: change in color Hematological/Lymphatic: denies: swollen glands ED Past Medical Hx - Past Medical History Previous Medical History?: Yes Hx Hypertension: Yes Hx Congestive Heart Failure: Yes Hx Seizures: Yes Hx Psychiatric Treatment: Yes (depression) Additional medical history: Bronchitis - Surgical History Past Surgical History?: Yes Additional Surgical History: hysterectomy - Social History Smoking Status: Never Smoker Substance Use Type: None - Medications Home Medications: Home Medications Medication Instructions Recorded Confirmed Last Taken Type Aspirin EC [Halfprin EC] 81 mg PO DAILY #100 tablet 04/29/20 Unknown Rx Escitalopram Oxalate [Lexapro] 20 mg PO DAILY #30 04/29/20 Unknown Rx levETIRAcetam [Keppra TAB] 500 mg PO BID #60 tablet 04/29/20 Unknown Rx Permethrin 5% [Acticin 5% CREAM] 1 applicatio TP ONCE #1 tube 10/23/20 Unknown Rx Prednisone [predniSONE 5 mg (6-Day 5 mg PO .TAPER #1 tab.ds.pk 10/23/20 Unknown Rx Pack, 21 Tabs)] ED Physical Exam - General Limitations: No Limitations General appearance: alert, in no apparent distress, obese, other (pt vigorously scratching skin ) - Head Head exam: Present: atraumatic, normocephalic - ENT ENT exam: Present: normal exam - Neck Neck exam: Present: normal inspection - Respiratory Respiratory exam: Absent: respiratory distress - Cardiovascular Cardiovascular Exam: Present: regular rate - Neurological Exam Neurological exam: Present: alert, oriented X3, normal gait - Psychiatric Psychiatric exam: Present: normal affect, normal mood - Skin Skin exam: Present: rash (papular rash noted diffusely to arms and dorsal apect of hands and neck with exoriation comer. Some papules are in a linear distribution ) ED Course Vital Signs 10/23/20 19:15 Temperature 98.7 F Pulse Rate 58 L Respiratory 18 Rate Blood Pressure 128/54 O2 Sat by Pulse 97 Oximetry ED Medical Decision Making - Radiology Data Radiology results: report reviewed - Medical Decision Making 65 yo F pt presents with complaints of itchy rash to the arms and neck x 1 week. She denies trying any OTC meds for her symptoms. Rash is non painful per pt. SHe also denies any drainage from the rash or fever/chills/sweats. Rash appears to be consistent with scabies. Rx for permethrin given. Discussed importance of home cleaning and f/u with PCP. Also discussed signs and symptoms that should prompt return to the ED in detail with pt who states understanding. Critical care attestation.: If time is entered above; I have spent that time in minutes in the direct care of this critically ill patient, excluding procedure time. ED Disposition Clinical Impression: Scabies Disposition: DC-01 TO HOME OR SELFCARE Is pt being admited?: No Condition: Stable Instructions: Scabies, Adult Prescriptions: Permethrin 5% [Acticin 5% CREAM] 1 applicatio TP ONCE #1 tube Prednisone [predniSONE 5 mg (6-Day Pack, 21 Tabs)] 5 mg PO .TAPER #1 tab.ds.pk Referrals: PRIMARY CARE, [Primary Care Provider] - 3-5 Days
== END 2020-10-23 21:43 | disposition home or self-care (01) ==
LOC: ED 18:52
DX: B86 Scabies (principal); I11.0 Hypertensive heart disease with heart failure; I50.9 Heart failure, unspecified; R56.9 Unspecified convulsions; F32.9 Major depressive disorder, single episode, unspecified; Z90.710 Acquired absence of both cervix and uterus; Z79.899 Other long term (current) drug therapy
CPT/HCPCS: 99282

== ENCOUNTER 2022-04-12 12:47 | Inpatient (IN) | payer MEDICARE ==
--- NOTE | 2022-04-12 13:12 | Consultation ---
History of Present Illness Consult date: 04/12/22 History of present illness: [facility] Consult Note # Demographics Consult Type: Acute Stroke Level 1 (0-4.5 hrs) Patient Location: Emergency Room First Name: RADHA Last Name: ANA CRISTINA Date of : 1955 Age: 67 Gender: Female Facility: [facility], [place] Time of Initial Page ( Time): 04/12/2022, 12:54 Time of Return Call ( Time): 04/12/2022, 12:54 # HPI Chief Complaint: altered mental state confusion numbness weakness (focal) History: Per ER staff, patient left doctor's office & complained of left-sided weakness. Lost consciousness during appointment. ER staff reported that symptoms had been going on for a couple of days ("the weakness & numbness for a while"). Duration: constant days Possible Thrombolytic candidate: not on warfarin or NOACs no intracranial hemorrhage history no recent major surgery Associated Symptoms: headache neck pain # Scores Time of exam and NIHSS ( Time): 04/12/2022, 12:56 Level of Consciousness 1a: [0] = Alert; keenly responsive LOC Questions 1b: [2] = Answers neither correctly LOC Commands 1c: [0] = Performs both tasks correctly Best Gaze 2: [0] = Normal Visual 3: [0] = No visual loss Facial Palsy 4: [0] = Normal symmetrical movements Motor Arm Left 5a: [0] = No drift Motor Arm Right 5b: [0] = No drift Motor Leg Left 6a: [0] = No drift Motor Leg Right 6b: [0] = No drift Limb Ataxia 7: [0] = Absent Sensory 8: [2] = Severe to total sensory loss Best Language 9: [0] = No aphasia Dysarthria 10: [1] = [id number] dysarthria Extinction and Inattention 11: [0] = No abnormality NIHSS Total: 5 Modified Raghu Scale (mRS) pre-stroke: [2] = Slight disability...unable to carry out all prev activities... Modified [place] Scale total: 2 VAN Screening: Negative # Exam SBP: 139 DBP: 56 Mental Status: awake follows commands Language: no aphasia dysarthria Sensory: decreased sensation right face decreased sensation left face decreased sensation left upper extremity decreased sensation right lower extremity decreased sensation left lower extremity # ROS Pulmonary: shortness of breath Cardiovascular: no chest pain # PMH-FH-SH Past Medical History: hypertension seizure Medications: aspirin Allergies: NKDA # Data Glucose: [address] personally read by me (Eastern Time): 04/12/2022, 13:[address]: no bleed preliminarily reviewed by me, please refer to radiology read for official reading # Assessment Impression: Altered Mental Status Weakness Toxic/ metabolic encephalopathy # Plan Thrombolytic/Intervention: NOT IV Thrombolysis or IA Intervention candidate Thrombolytic Exclusion (< 3 hour window): time of onset unclear Thrombolytic Exclusion: > 4.5 hours Symptoms reportedly been going on for several days preceding current visit. Labs: B12 CBC comprehensive metabolic panel ESR hemoglobin A1c lipid panel thiamine troponin TSH urine drug screen ua Imaging: (urgency: STAT): CT Angiogram Head and CT Angiogram Neck AND call back with results if abnormal Imaging: (urgency: routine): MRI Brain without contrast Diagnostic Test: echo without bubble study Therapy/Evaluation: NPO until swallow evaluation PT/OT evaluation speech/swallow consultation Medication: Continue outpatient medication regimen pending diagnostic results. DVT Prophylaxis: SCD chemical DVT prophylaxis Other: If patient has any neurological deterioration please call me back immediately telemetry monitoring would not pursue stroke work-up if MRI is negative I have discussed my recommendations with the referring provider Avoid/ manage delirium triggers Disposition: admit # Demographics First Name: RADHA Last Name: ANA CRISTINA Facility: [facility], [place] Medications and Allergies Allergies Allergy/AdvReac Type Severity Reaction Status Date / Time No Known Allergies Allergy Verified 04/12/22 13:04 Home Medications Medication Instructions Recorded Confirmed Last Taken Type Aspirin EC [Halfprin EC] 81 mg PO DAILY #100 tablet 04/29/20 Unknown Rx Escitalopram Oxalate [Lexapro] 20 mg PO DAILY #30 04/29/20 Unknown Rx levETIRAcetam [Keppra TAB] 500 mg PO BID #60 tablet 04/29/20 Unknown Rx Permethrin 5% [Acticin 5% CREAM] 1 applicatio TP ONCE #1 tube 10/23/20 Unknown Rx Prednisone [predniSONE 5 mg (6-Day 5 mg PO .TAPER #1 tab.ds.pk 10/23/20 Unknown Rx Pack, 21 Tabs)] Physical Examination - Vital Signs Vital Signs: Vital Signs Pulse Resp BP Pulse Ox 72 16 139/56 96 04/12/22 13:03 08/24/22 13:03 04/12/22 13:03 04/12/22 13:03
--- NOTE | 2022-04-12 13:27 | Emergency Department Report ---
ED Neuro Deficit HPI - General Chief Complaint: Neuro Symptoms/Deficit Stated Complaint: LT SIDE WEAKNESS Time Seen by Provider: 04/12/22 12:57 Source: patient, EMS Mode of arrival: Stretcher Limitations: No Limitations - History of Present Illness Initial Comments: Patient is a 67-year-old female brought in from doctor's office for evaluation of left-sided weakness for the past week involving her arm and leg. Also has syncopal event at doctor's office. - Related Data Home Medications: Previous Rx's Medication Instructions Recorded Last Taken Type Aspirin EC [Halfprin EC] 81 mg PO DAILY #100 tablet 04/29/20 Unknown Rx Escitalopram Oxalate [Lexapro] 20 mg PO DAILY #30 04/29/20 Unknown Rx levETIRAcetam [Keppra TAB] 500 mg PO BID #60 tablet 04/29/20 Unknown Rx Permethrin 5% [Acticin 5% CREAM] 1 applicatio TP ONCE #1 tube 10/23/20 Unknown Rx Prednisone [predniSONE 5 mg (6-Day 5 mg PO .TAPER #1 tab.ds.pk 10/23/20 Unknown Rx Pack, 21 Tabs)] Allergies/Adverse Reactions: Allergies Allergy/AdvReac Type Severity Reaction Status Date / Time No Known Allergies Allergy Verified 04/12/22 13:04 ED Review of Systems ROS: Stated complaint: LT SIDE WEAKNESS Other details as noted in HPI Constitutional: denies: chills, fever Respiratory: denies: cough, shortness of breath, wheezing Cardiovascular: syncope. denies: chest pain Gastrointestinal: denies: abdominal pain, nausea, diarrhea Musculoskeletal: denies: back pain, joint swelling, arthralgia Skin: denies: rash, lesions Neurological: headache, weakness, numbness, paresthesias Psychiatric: denies: anxiety, depression ED Past Medical Hx - Past Medical History Hx Hypertension: Yes Hx Congestive Heart Failure: Yes Hx Seizures: Yes Hx Psychiatric Treatment: Yes (depression) Additional medical history: Bronchitis - Surgical History Additional Surgical History: hysterectomy - Social History Smoking Status: Never Smoker Substance Use Type: None - Medications Home Medications: Home Medications Medication Instructions Recorded Confirmed Last Taken Type Aspirin EC [Halfprin EC] 81 mg PO DAILY #100 tablet 04/29/20 Unknown Rx Escitalopram Oxalate [Lexapro] 20 mg PO DAILY #30 04/29/20 Unknown Rx levETIRAcetam [Keppra TAB] 500 mg PO BID #60 tablet 04/29/20 Unknown Rx Permethrin 5% [Acticin 5% CREAM] 1 applicatio TP ONCE #1 tube 10/23/20 Unknown Rx Prednisone [predniSONE 5 mg (6-Day 5 mg PO .TAPER #1 tab.ds.pk 10/23/20 Unknown Rx Pack, 21 Tabs)] ED Neuro Physical Exam - General Limitations: No Limitations General appearance: alert, in no apparent distress Suspected Stroke: Yes - Head Head exam: Present: atraumatic, normocephalic - Eye Eye exam: Present: normal appearance - Respiratory Respiratory exam: Present: normal lung sounds bilaterally. Absent: respiratory distress - Cardiovascular Cardiovascular Exam: Present: regular rate, normal rhythm, normal heart sounds - GI/Abdominal GI/Abdominal exam: Present: soft. Absent: distended, tenderness - Rectal Rectal exam: Present: deferred - Neurological Exam Neurological exam: Present: alert, oriented X3, CN II-XII intact - NIHSS Assessment Interval: 7-10 Days 1a. Level of Consciousness: alert/keenly responsive 1b. LOC Questions: answers no questions correctly 1c. LOC Commands: performs tasks correctly 2. Best Gaze: normal 3. Visual: no visual loss 4. Facial Palsy: normal symmetrical movement 5b. Motor Arm Right: no drift 5a. Motor Arm Left: no drift 6a. Motor Leg Left: no drift 6b. Motor Leg Right: no drift 7. Limb Ataxia: absent 8. Sensory: severe/total sensory loss 9. Best Language: no aphasia 10. Dysarthria: mild/moderate dysarthria 11. Extinction/Inattention: no abnormality Total Score: 5 Stroke Severity: Moderate Stroke - Psychiatric Psychiatric exam: Present: normal affect, normal mood - Skin Skin exam: Present: warm, dry, intact, normal color ED Course Vital Signs 04/12/22 04/12/22 04/12/22 13:03 13:26 13:28 Temperature 97.7 F Pulse Rate 72 61 67 Respiratory 16 9 L 12 Rate Blood Pressure 118/55 Blood Pressure 139/56 [Left] O2 Sat by Pulse 96 95 Oximetry 04/12/22 04/12/22 04/12/22 13:30 13:45 14:00 Temperature Pulse Rate 62 57 L 62 Respiratory 12 11 L 18 Rate Blood Pressure 118/55 118/56 110/52 Blood Pressure [Left] O2 Sat by Pulse 93 95 95 Oximetry 04/12/22 04/12/22 04/12/22 14:16 14:30 14:46 Temperature Pulse Rate 54 L 53 L 55 L Respiratory 14 19 19 Rate Blood Pressure 122/56 112/46 102/44 Blood Pressure [Left] O2 Sat by Pulse 98 99 95 Oximetry 04/12/22 04/12/22 04/12/22 15:00 15:16 15:30 Temperature Pulse Rate 56 L 56 L 56 L Respiratory 17 15 17 Rate Blood Pressure 112/48 110/49 104/47 Blood Pressure [Left] O2 Sat by Pulse 95 96 96 Oximetry 04/12/22 04/12/22 04/12/22 15:46 16:00 16:16 Temperature Pulse Rate 54 L 58 L 55 L Respiratory 17 18 17 Rate Blood Pressure 115/52 113/55 111/54 Blood Pressure [Left] O2 Sat by Pulse 99 95 95 Oximetry 04/12/22 04/12/22 04/12/22 16:30 16:46 17:00 Temperature Pulse Rate 56 L 66 61 Respiratory 17 12 14 Rate Blood Pressure 120/53 107/53 118/58 Blood Pressure [Left] O2 Sat by Pulse 96 97 97 Oximetry 04/12/22 04/12/22 04/12/22 17:16 17:30 17:46 Temperature Pulse Rate 62 58 L 62 Respiratory 9 L 16 12 Rate Blood Pressure 111/47 101/38 105/42 Blood Pressure [Left] O2 Sat by Pulse 98 97 99 Oximetry - Lab Data Result diagrams: 04/12/22 13:28 04/12/22 16:47 Lab Results 04/12/22 04/12/22 04/12/22 Range/Units 13:24 13:28 13:28 WBC 5.9 (4.5-11.0) K/mm3 RBC 4.89 (3.65-5.03) M/mm3 Hgb 14.7 H (10.1-14.3) gm/dl Hct 43.6 H (30.3-42.9) % MCV 89 (79-97) fl MCH 30 (28-32) pg MCHC 34 (30-34) % RDW 13.8 (13.2-15.2) % Plt Count 181 (140-440) K/mm3 Lymph % (Auto) 34.2 (13.4-35.0) % [place] % (Auto) 9.9 H (0.0-7.3) % Eos % (Auto) 2.7 (0.0-4.3) % Baso % (Auto) 1.1 (0.0-1.8) % Lymph # (Auto) 2.0 (1.2-5.4) K/mm3 [place] # (Auto) 0.6 (0.0-0.8) K/mm3 Eos # (Auto) 0.2 (0.0-0.4) K/mm3 Baso # (Auto) 0.1 (0.0-0.1) K/mm3 Seg Neutrophils % 52.1 (40.0-70.0) % Seg Neutrophils # 3.1 (1.8-7.7) K/mm3 PT 14.3 (12.2-14.9) Sec. INR 1.00 (0.87-1.13) APTT 30.0 (24.2-36.6) Sec. Thrombin Time 18.7 (15.1-19.6) Sec. Sodium (137-145) mmol/L Potassium (3.6-5.0) mmol/L Chloride (98-107) mmol/L Carbon Dioxide (22-30) mmol/L Anion Gap mmol/L BUN (7-17) mg/dL Creatinine (0.6-1.2) mg/dL Estimated GFR ml/min BUN/Creatinine Ratio % Glucose (65-100) mg/dL POC Glucose 105 (70-105) mg/dL Calcium (8.4-10.2) mg/dL Total Creatine Kinase (30-135) units/L CK-MB (CK-2) (0.0-4.0) ng/mL CK-MB (CK-2) Rel Index (0-4) Troponin T (0.00-0.029) ng/mL 04/12/22 04/12/22 Range/Units 13:28 16:47 WBC (4.5-11.0) K/mm3 RBC (3.65-5.03) M/mm3 Hgb (10.1-14.3) gm/dl Hct (30.3-42.9) % MCV (79-97) fl MCH (28-32) pg MCHC (30-34) % RDW (13.2-15.2) % Plt Count (140-440) K/mm3 Lymph % (Auto) (13.4-35.0) % [place] % (Auto) (0.0-7.3) % Eos % (Auto) (0.0-4.3) % Baso % (Auto) (0.0-1.8) % Lymph # (Auto) (1.2-5.4) K/mm3 [place] # (Auto) (0.0-0.8) K/mm3 Eos # (Auto) (0.0-0.4) K/mm3 Baso # (Auto) (0.0-0.1) K/mm3 Seg Neutrophils % (40.0-70.0) % Seg Neutrophils # (1.8-7.7) K/mm3 PT (12.2-14.9) Sec. INR (0.87-1.13) APTT (24.2-36.6) Sec. Thrombin Time (15.1-19.6) Sec. Sodium 139 (137-145) mmol/L Potassium 5.6 H (3.6-5.0) mmol/L Chloride 100.7 (98-107) mmol/L Carbon Dioxide 28 (22-30) mmol/L Anion Gap 16 mmol/L BUN 12 (7-17) mg/dL Creatinine 0.7 (0.6-1.2) mg/dL Estimated GFR > 60 ml/min BUN/Creatinine Ratio 17 % Glucose 90 (65-100) mg/dL POC Glucose (70-105) mg/dL Calcium 9.3 (8.4-10.2) mg/dL Total Creatine Kinase 63 (30-135) units/L CK-MB (CK-2) 1.7 (0.0-4.0) ng/mL CK-MB (CK-2) Rel Index 2.6 (0-4) Troponin T < 0.010 (0.00-0.029) ng/mL - Medical Decision Making Code stroke paged. Patient evaluated by teleneurology. Not a candidate for tPA. Stroke score is 5. CT head, CTA head and neck are unremarkable. Recommended admission for further work-up including echo and MRI. Labs reviewed, grossly unremarkable except for mild hyperkalemia at 5.6. Will admit to hospitalist. Critical care attestation.: If time is entered above; I have spent that time in minutes in the direct care of this critically ill patient, excluding procedure time. ED Disposition Clinical Impression: Stroke-like symptoms, Hyperkalemia Disposition: ADMITTED INPATIENT Is pt being admited?: Yes Condition: Stable
--- NOTE | 2022-04-12 13:33 | Cat Scan Report ---
CT head/brain wo con INDICATION: Stroke symptoms. TECHNIQUE: Routine CT head. All CT scans at this location are performed using CT dose reduction for A FLOR by means of automated exposure control. COMPARISON: None. FINDINGS: Intracranial: Hartley-white matter differentiation is maintained. No intracranial hemorrhage. No extra a xial collection. No hydrocephalus. No herniation. Periventricular and centrum semiovale white matter hypoattenuation most consistent with sequela of chronic microvascular disease. Sinuses: Paranasal sinuses and mastoid air cells are essentially clear. Orbits: Globes are intact. Calvarium: No acute fracture. IMPRESSION: 1. No hemorrhage. No acute intracranial abnormality. I informed dr Jean-Pierre wilson 12:26 Signer Name: Yuri Acevedo MD Signed: 04/12/2022 1:29 PM Workstation Name: [employer]
--- NOTE | 2022-04-12 13:35 | Cat Scan Report ---
CT angio head HISTORY: stroke sx COMPARISON: None. TECHNIQUE: CTA of the neck and head is performed after IV contrast. 3-D/MIP reformats were postproces sed. Percentage stenosis is determined by direct quantitative measurements of diseased internal dexter tid artery diameter compared with normal distal internal carotid artery reference segments or by crit eria similar to NASCET where applicable. All CT scans at this location are performed using CT dose re duction for ALARA by means of automated exposure control. FINDINGS: CTA NECK: Aortic arch: Four-vessel aortic arch. No asymptomatic. Cervical vertebral arteries: No occlusion or hemodynamically significant stenosis. Common Carotid arteries: No occlusion or hemodynamically significant stenosis. Internal carotid arteries: No occlusion or hemodynamically significant stenosis. CTA HEAD: Intracranial internal carotid arteries: No occlusion or significant stenosis. Anterior cerebral arteries: No occlusion or significant stenosis. Middle cerebral arteries: No occlusion or significant stenosis. Intracranial vertebral arteries: No occlusion or significant stenosis. Basilar artery: No occlusion or significant stenosis. Posterior cerebral arteries: No occlusion or significant stenosis. No aneurysm. Additional findings: None. IMPRESSION: 1. CTA NECK: No occlusion or significant stenosis of the carotid or vertebral arteries. 2. CTA HEAD: No occlusion or significant stenosis of the major intracranial vasculature. Informed Dr Morejon at 132:26 Signer Name: Yuri Acevedo MD Signed: 04/12/2022 1:30 PM Workstation Name: [employer]
[2022-04-12 13:45] LABS: Basophils # (Auto) 0.1 K/mm3 (0.0-0.1); Basophils % (Auto) 1.1 % (0.0-1.8); Eosinophils # (Auto) 0.2 K/mm3 (0.0-0.4); Eosinophils % (Auto) 2.7 % (0.0-4.3); Hematocrit 43.6 % (30.3-42.9); Hemoglobin 14.7 gm/dl (10.1-14.3); Lymphocytes % (Auto) 34.2 % (13.4-35.0); Mean Corpuscular HGB Conc 34 % (30-34); Mean Corpuscular Volume 89 fl (79-97); Monocytes # (Auto) 0.6 K/mm3 (0.0-0.8); Monocytes % (Auto) 9.9 % (0.0-7.3); Platelet Count 181 K/mm3 (140-440); Red Blood Count 4.89 M/mm3 (3.65-5.03); Red Cell Distribution Width 13.8 % (13.2-15.2)
[2022-04-12 13:56] LABS: Thrombin Time 18.7 Sec. (15.1-19.6)
[2022-04-12 14:09] LABS: Creatine Kinase MB 1.7 ng/mL (0.0-4.0)
[2022-04-12] MEDS ORDERED: MORPHINE 2 MG/1 ML INJ IV PRN (17:02)
[2022-04-12] MEDS ORDERED: ACETAMINOPHEN 325 MG TAB PO PRN ×2 (17:02→21:32)
[2022-04-12] MEDS ORDERED: ONDANSETRON 4 MG/2 ML INJ IV PRN ×2 (17:02→21:32)
[2022-04-12] MEDS ORDERED: MORPHINE 4 MG/1 ML INJ IV PRN (17:02)
[2022-04-12 18:11] LABS: Blood Urea Nitrogen 12 mg/dL (7-17); Calcium 9.3 mg/dL (8.4-10.2); Hemolysis Index 208
[2022-04-12 18:15] LABS: BUN/Creatinine Ratio 17
[2022-04-12] MEDS ORDERED: ASPIRIN 325 MG TAB PO ONE (18:25)
[2022-04-12] MEDS: SODIUM CHLORIDE 0.9% 1000 ML 1,000 ML IV SCH (20:45)
[2022-04-12] MEDS ORDERED: METOCLOPRAMIDE 10 MG/2 ML INJ IV PRN (21:32)
--- NOTE | 2022-04-12 21:44 | History and Physical Report ---
History of Present Illness Date of examination: 04/12/22 Date of admission: 04/12/22 17:03 Chief complaint: Left-sided weakness for 2 days History of present illness: Patient is a 67-year-old female brought in from doctor's office for evaluation of left-sided weakness for the past week involving her arm and leg. Also has syncopal event at doctor's office. - Past Medical History --Hypertension: Yes --Congestive Heart Failure: Yes --Seizures: Yes --Psychiatric Treatment: Yes (depression) --Additional medical history: Bronchitis - Surgical History --Additional Surgical History: hysterectomy - Social History --Smoking Status: Never Smoker --Substance Use Type: None - Medications --Home Medications: Home Medications Medication Instructions Recorded Confirmed Last Taken Type Aspirin EC [Halfprin EC] 81 mg PO DAILY #100 tablet 04/29/20 Unknown Rx Escitalopram Oxalate [Lexapro] 20 mg PO DAILY #30 04/29/20 Unknown Rx levETIRAcetam [Keppra TAB] 500 mg PO BID #60 tablet 04/29/20 Unknown Rx Permethrin 5% [Acticin 5% CREAM] 1 applicatio TP ONCE #1 tube 10/23/20 Unknown Rx Prednisone [predniSONE 5 mg (6-Day 5 mg PO .TAPER #1 tab.ds.pk 10/23/20 Unknown Rx Pack, 21 Tabs)] Review of Systems ROS: Stated complaint: LT SIDE WEAKNESS Other details as noted in HPI Constitutional: denies: chills, fever Respiratory: denies: cough, shortness of breath, wheezing Cardiovascular: syncope. denies: chest pain Gastrointestinal: denies: abdominal pain, nausea, diarrhea Musculoskeletal: denies: back pain, joint swelling, arthralgia Skin: denies: rash, lesions Neurological: headache, weakness, numbness, paresthesias Psychiatric: denies: anxiety, depression Medications and Allergies Allergies Allergy/AdvReac Type Severity Reaction Status Date / Time No Known Allergies Allergy Verified 04/12/22 13:04 Home Medications Medication Instructions Recorded Confirmed Last Taken Type Aspirin EC [Halfprin EC] 81 mg PO DAILY #100 tablet 04/29/20 Unknown Rx Escitalopram Oxalate [Lexapro] 20 mg PO DAILY #30 04/29/20 Unknown Rx levETIRAcetam [Keppra TAB] 500 mg PO BID #60 tablet 04/29/20 Unknown Rx Permethrin 5% [Acticin 5% CREAM] 1 applicatio TP ONCE #1 tube 10/23/20 Unknown Rx Prednisone [predniSONE 5 mg (6-Day 5 mg PO .TAPER #1 tab.ds.pk 10/23/20 Unknown Rx Pack, 21 Tabs)] Active Meds: Active Medications Acetaminophen (Acetaminophen 325 Mg Tab) 650 mg PO Q4H PRN PRN Reason: Pain MILD(1-3)/Fever >100.5/NIETO Enoxaparin Sodium (Enoxaparin 40 Mg/0.4 Ml Inj) 40 mg SUB-Q QDAY NICOLÁS Morphine Sulfate (Morphine 2 Mg/1 Ml Inj) 2 mg IV Q4H PRN PRN Reason: Pain, Moderate (4-6) Morphine Sulfate (Morphine 4 Mg/1 Ml Inj) 4 mg IV Q4H PRN PRN Reason: Pain , Severe (7-10) Ondansetron HCl (Ondansetron 4 Mg/2 Ml Inj) 4 mg IV Q8H PRN PRN Reason: Nausea And Vomiting Sodium Chloride (Sodium Chloride 0.9% 10 Ml Flush Syringe) 10 ml IV BID NICOLÁS Sodium Chloride (Sodium Chloride 0.9% 10 Ml Flush Syringe) 10 ml IV PRN PRN PRN Reason: LINE FLUSH Exam - Constitutional Vitals: Temp Pulse Resp BP Pulse Ox 97.7 F 62 12 105/42 99 04/12/22 13:28 04/12/22 17:46 04/12/22 17:46 04/12/22 17:46 04/12/22 17:46 General appearance: Present: no acute distress, well-nourished - EENT Eyes: Present: PERRL ENT: hearing intact, clear oral mucosa - Neck Neck: Present: supple, normal ROM - Respiratory Respiratory effort: normal Respiratory: bilateral: CTA - Cardiovascular Heart rate: 78 Rhythm: regular Heart Sounds: Present: S1 & S2. Absent: rub, click - Extremities Extremities: no ischemia, pulses intact, pulses symmetrical, No edema, abnormal (Left-sided weakness present.) Peripheral Pulses: within normal limits - Abdominal General gastrointestinal: Present: soft, non-tender, non-distended, normal bowel sounds Female genitourinary: Present: normal - Integumentary Integumentary: Present: clear, warm, dry - Musculoskeletal Musculoskeletal: strength equal bilaterally, left sided weakness (3/5 power in left upper extremity and left lower extremity.) - Psychiatric Psychiatric: appropriate mood/affect, intact judgment & insight - Neurologic Neurologic: CNII-XII intact, focal deficits (Left upper extremity and left lower extremity weakness present 3/5 power), moves all extremities HEART Score - HEART Score History: Moderately suspicious Age: > 65 Risk factors: 1-2 risk factors Troponin: Troponin T < 0.010 ng/mL (0.00-0.029) 04/12/22 13:28 Troponin: < normal limit - Critical Actions Critical Actions: 0-3 pts:0.9-1.7%risk of adverse cardiac event.Candidate for discharge Results - Labs CBC & Chem 7: 04/13/22 05:35 04/13/22 05:35 Labs: Laboratory Last Values WBC 5.9 K/mm3 (4.5-11.0) 04/12/22 13:28 RBC 4.89 M/mm3 (3.65-5.03) 04/12/22 13:28 Hgb 14.7 gm/dl (10.1-14.3) H 04/12/22 13:28 Hct 43.6 % (30.3-42.9) H 04/12/22 13:28 MCV 89 fl (79-97) 04/12/22 13:28 MCH 30 pg (28-32) 04/12/22 13:28 MCHC 34 % (30-34) 04/12/22 13:28 RDW 13.8 % (13.2-15.2) 04/12/22 13:28 Plt Count 181 K/mm3 (140-440) 04/12/22 13:28 Lymph % (Auto) 34.2 % (13.4-35.0) 04/12/22 13:28 Moore % (Auto) 9.9 % (0.0-7.3) H 04/12/22 13:28 Eos % (Auto) 2.7 % (0.0-4.3) 04/12/22 13:28 Baso % (Auto) 1.1 % (0.0-1.8) 04/12/22 13:28 Lymph # (Auto) 2.0 K/mm3 (1.2-5.4) 04/12/22 13:28 Moore # (Auto) 0.6 K/mm3 (0.0-0.8) 04/12/22 13:28 Eos # (Auto) 0.2 K/mm3 (0.0-0.4) 04/12/22 13:28 Baso # (Auto) 0.1 K/mm3 (0.0-0.1) 04/12/22 13:28 Seg Neutrophils % 52.1 % (40.0-70.0) 04/12/22 13:28 Seg Neutrophils # 3.1 K/mm3 (1.8-7.7) 04/12/22 13:28 PT 14.3 Sec. (12.2-14.9) 04/12/22 13:28 INR 1.00 (0.87-1.13) 04/12/22 13:28 APTT 30.0 Sec. (24.2-36.6) 04/12/22 13:28 Thrombin Time 18.7 Sec. (15.1-19.6) 04/12/22 13:28 Sodium 139 mmol/L (137-145) 04/12/22 16:47 Potassium 5.6 mmol/L (3.6-5.0) H 04/12/22 16:47 Chloride 100.7 mmol/L (98-107) 04/12/22 16:47 Carbon Dioxide 28 mmol/L (22-30) 04/12/22 16:47 Anion Gap 16 mmol/L 04/12/22 16:47 BUN 12 mg/dL (7-17) 04/12/22 16:47 Creatinine 0.7 mg/dL (0.6-1.2) 04/12/22 16:47 Estimated GFR > 60 ml/min 04/12/22 16:47 BUN/Creatinine Ratio 17 % 04/12/22 16:47 Glucose 90 mg/dL (65-100) 04/12/22 16:47 POC Glucose 105 mg/dL (70-105) 04/12/22 13:24 Calcium 9.3 mg/dL (8.4-10.2) 04/12/22 16:47 Total Creatine Kinase 63 units/L (30-135) 04/12/22 13:28 CK-MB (CK-2) 1.7 ng/mL (0.0-4.0) 04/12/22 13:28 CK-MB (CK-2) Rel Index 2.6 (0-4) 04/12/22 13:28 Troponin T < 0.010 ng/mL (0.00-0.029) 04/12/22 13:28 Short CBC 04/12/22 04/13/22 Range/Units 13:28 05:35 WBC 5.9 5.5 (4.5-11.0) K/mm3 Hgb 14.7 H 13.4 (10.1-14.3) gm/dl Hct 43.6 H 41.7 (30.3-42.9) % Plt Count 181 185 (140-440) K/mm3 BMP 04/12/22 04/13/22 16:47 05:35 Sodium 139 141 Potassium 5.6 H 4.3 D Chloride 100.7 104.5 Carbon Dioxide 28 24 BUN 12 15 Creatinine 0.7 0.7 Glucose 90 118 H Calcium 9.3 8.8 Cardiac Enzymes 04/12/22 Range/Units 13:28 Total Creatine Kinase 63 (30-135) units/L CK-MB (CK-2) 1.7 (0.0-4.0) ng/mL Troponin T < 0.010 (0.00-0.029) ng/mL Liver Function 04/13/22 Range/Units 05:35 Total Bilirubin 0.80 (0.1-1.2) mg/dL AST 25 (5-40) units/L ALT 18 (7-56) units/L Alkaline Phosphatase 127 (35-129) units/L Albumin 3.7 L (3.9-5) g/dL Urine 04/12/22 Range/Units 14:32 Urine Color Yellow (Yellow) - Imaging and Cardiology Imaging and Cardiology: Head CT No hemorrhage No acute intracranial abnormality Head CT and neck CTA No acute findings Assessment and Plan Advance Directives: Yes (Full code) VTE prophylaxis?: Chemical Plan of care discussed with patient/family: Yes - Patient Problems (1) Acute CVA (cerebrovascular accident) Current Visit: Yes Status: Acute Plan to address problem: CVA protocol MRI Echocardiogram Neurology consult Physical therapy and Occupational Therapy High-dose statins Aspirin 325 g once a day Plavix to be added (2) Hypertension Current Visit: Yes Status: Chronic Qualifiers: Hypertension type: primary hypertension Qualified Code(s): I10 - Essential (primary) hypertension Plan to address problem: Continue antihypertensives and adjust medications as necessary (3) CHF (congestive heart failure) Current Visit: Yes Status: Chronic Qualifiers: Heart failure type: right heart failure due to left heart failure Qualified Code(s): I50.814 - Right heart failure due to left heart failure Plan to address problem: Continue Lasix (4) Seizure disorder Current Visit: Yes Status: Chronic Plan to address problem: Continue Keppra 5 mg twice a day (5) Depression Current Visit: Yes Status: Chronic Qualifiers: Depression Type: unspecified Qualified Code(s): F32.A - Depression, unspecified Plan to address problem: Continue Lexapro (6) DVT prophylaxis Current Visit: Yes Status: Acute Plan to address problem: On heparin GI prophylaxis (7) Advance care planning Current Visit: Yes Status: Acute Plan to address problem: Disease education conducted, care plan discussed, diagnosis discussed and prognosis discussed. Patient acknowledged understanding of the plan. +30 minutes. Patient is full code.
[2022-04-12 22:12] LABS: Color,Urine Yellow (Yellow)
[2022-04-12 22:14] LABS: Bacteria,Urine 1+ /HPF (Negative); Mucus,Urine FEW /HPF
[2022-04-12 22:22] LABS: Amphetamine Screen,Urine Negative; Benzodiazepines Screen,Urine Negative; Cannabinoid Screen,Urine Negative; Cocaine Screen,Urine Negative; Methadone Screen,Urine Negative; Opiate Screen,Urine Negative
[2022-04-12] MEDS: ESCITALOPRAM 10 MG TAB PO SCH (22:36)
[2022-04-12] MEDS: levETIRAcetam 500 MG TAB PO SCH (23:25)
[2022-04-12] MEDS: ASPIRIN EC 81 MG TAB PO SCH (23:25)
[2022-04-12] MEDS: FAMOTIDINE 20 MG TAB PO SCH (23:25)
[2022-04-13 06:05] LABS: Basophils # (Auto) 0.1 K/mm3 (0.0-0.1); Basophils % (Auto) 1.7 % (0.0-1.8); Eosinophils # (Auto) 0.2 K/mm3 (0.0-0.4); Eosinophils % (Auto) 3.7 % (0.0-4.3); Hematocrit 41.7 % (30.3-42.9); Hemoglobin 13.4 gm/dl (10.1-14.3); Lymphocytes # (Auto) 1.6 K/mm3 (1.2-5.4); Lymphocytes % (Auto) 28.4 % (13.4-35.0); Mean Corpuscular HGB Conc 32 % (30-34); Mean Corpuscular Volume 91 fl (79-97); Monocytes # (Auto) 0.6 K/mm3 (0.0-0.8); Monocytes % (Auto) 10.9 % (0.0-7.3); Platelet Count 185 K/mm3 (140-440); Red Cell Distribution Width 13.7 % (13.2-15.2)
[2022-04-13 06:29] LABS: Alanine Aminotransferase 18 units/L (7-56); Albumin 3.7 g/dL (3.9-5); Blood Urea Nitrogen 15 mg/dL (7-17); Calcium 8.8 mg/dL (8.4-10.2); Chol/HDL Ratio 3.19 %; HDL Cholesterol 46 mg/dL (40-59); Hemolysis Index 129; LDL Cholesterol,Direct 86 mg/dL (50-130)
[2022-04-13 06:31] LABS: BUN/Creatinine Ratio 21
[2022-04-13] MEDS: FAMOTIDINE 20 MG TAB PO SCH ×2 (09:08→22:59)
[2022-04-13] MEDS: levETIRAcetam 500 MG TAB PO SCH ×2 (09:08→22:59)
[2022-04-13] MEDS: ASPIRIN 325 MG TAB PO SCH (09:08)
[2022-04-13] MEDS: ESCITALOPRAM 10 MG TAB PO SCH (09:08)
[2022-04-13] MEDS: ASPIRIN EC 81 MG TAB PO SCH (09:08)
[2022-04-13] MEDS: ENOXAPARIN 40 MG/0.4 ML INJ SUB-Q SCH (09:08)
--- NOTE | 2022-04-13 09:55 | Electrocardiograph Report ---
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
[2022-04-13] MEDS: SODIUM CHLORIDE 0.9% 1000 ML 1,000 ML IV SCH (17:24)
--- NOTE | 2022-04-13 19:43 | Consultation ---
History of Present Illness Consult date: 04/13/22 Reason for Consult: CVA Chief complaint: Left-sided Weakness/Numbness History of present illness: 67 yo female with htn, chf, seizure d/o who presents where she had noticed left- sided weakness/numbness for the last few days and suffered an episode of loss of consciousness while at the physician's office. Past History Past Medical History: hypertension, seizures, other (chf;) Past Surgical History: Other (no relevant surgical history) Social history: other (no recreational drugs;) Family history: no significant family history Medications and Allergies Allergies Allergy/AdvReac Type Severity Reaction Status Date / Time No Known Allergies Allergy Verified 04/12/22 13:04 Home Medications Medication Instructions Recorded Confirmed Last Taken Type Aspirin EC [Halfprin EC] 81 mg PO DAILY #100 tablet 04/29/20 Unknown Rx Escitalopram Oxalate [Lexapro] 20 mg PO DAILY #30 04/29/20 Unknown Rx levETIRAcetam [Keppra TAB] 500 mg PO BID #60 tablet 04/29/20 Unknown Rx Permethrin 5% [Acticin 5% CREAM] 1 applicatio TP ONCE #1 tube 10/23/20 Unknown Rx Prednisone [predniSONE 5 mg (6-Day 5 mg PO .TAPER #1 tab.ds.pk 10/23/20 Unknown Rx Pack, 21 Tabs)] Active Meds: Active Medications Acetaminophen (Acetaminophen 325 Mg Tab) 650 mg PO Q4H PRN PRN Reason: Pain MILD(1-3)/Fever >100.5/NIETO Aspirin (Aspirin 325 Mg Tab) 325 mg PO QDAY ON LICENSE OF [facility] Last Admin: 04/13/22 09:08 Dose: 325 mg Atorvastatin Calcium (Atorvastatin 40 Mg Tab) 40 mg PO QHS ON LICENSE OF [facility] Last Admin: 04/12/22 23:25 Dose: 40 mg Enoxaparin Sodium (Enoxaparin 40 Mg/0.4 Ml Inj) 40 mg SUB-Q QDAY ON LICENSE OF [facility] Last Admin: 04/13/22 09:08 Dose: 40 mg Escitalopram Oxalate (Escitalopram 10 Mg Tab) 20 mg PO DAILY ON LICENSE OF [facility] Last Admin: 04/13/22 09:08 Dose: 20 mg Famotidine (Famotidine 20 Mg Tab) 20 mg PO BID ON LICENSE OF [facility] Last Admin: 04/13/22 09:08 Dose: 20 mg Sodium Chloride (Nacl 0.9% 1000 Ml) 1,000 mls @ 75 mls/hr IV DIRECT ON LICENSE OF [facility] Last Admin: 04/13/22 17:24 Dose: 75 mls/hr Levetiracetam (Levetiracetam 500 Mg Tab) 500 mg PO BID ON LICENSE OF [facility] Last Admin: 04/13/22 09:08 Dose: 500 mg Metoclopramide HCl (Metoclopramide 10 Mg/2 Ml Inj) 10 mg IV Q6H PRN PRN Reason: Nausea And Vomiting Last Admin: 04/12/22 23:25 Dose: 10 mg Morphine Sulfate (Morphine 2 Mg/1 Ml Inj) 2 mg IV Q4H PRN PRN Reason: Pain, Moderate (4-6) Morphine Sulfate (Morphine 4 Mg/1 Ml Inj) 4 mg IV Q4H PRN PRN Reason: Pain , Severe (7-10) Ondansetron HCl (Ondansetron 4 Mg/2 Ml Inj) 4 mg IV Q3H PRN PRN Reason: Nausea And Vomiting Sodium Chloride (Sodium Chloride 0.9% 10 Ml Flush Syringe) 10 ml IV BID ON LICENSE OF [facility] Last Admin: 04/13/22 09:09 Dose: 10 ml Sodium Chloride (Sodium Chloride 0.9% 10 Ml Flush Syringe) 10 ml IV PRN PRN PRN Reason: LINE FLUSH Physical Examination - Vital Signs Vital Signs: Vital Signs Pulse Resp BP Pulse Ox 72 16 139/56 96 04/12/22 13:03 04/12/22 13:03 04/12/22 13:03 04/12/22 13:03 - Physical Exam Narrative exam: Patient not seen because [employer] machine lacks internet access today. Results - Laboratory Findings CBC and BMP: 04/13/22 05:35 04/13/22 05:35 Abnormal Lab Findings: Abnormal Labs 04/12/22 04/12/22 04/12/22 13:28 14:32 16:47 Hgb 14.7 H Hct 43.6 H [place] % (Auto) 9.9 H Potassium 5.6 H Glucose POC Glucose Total Protein Albumin Urine WBC (Auto) 15.0 H 04/12/22 04/13/22 04/13/22 23:35 05:35 05:35 Hgb Hct [place] % (Auto) 10.9 H Potassium Glucose 118 H POC Glucose 119 H Total Protein 6.1 L Albumin 3.7 L Urine WBC (Auto) Assessment and Plan 67 yo female with htn, chf, seizure d/o who presents where she had noticed left- sided weakness/numbness for the last few days and suffered an episode of loss of consciousness while at the physician's office. 1. Acute/Subacute Ischemic Stroke - recommend ASA 325 mg PO qday, MRI Brain w/o contrast pending; TTEcho, CUS, confirm LDL/TSH/Covid-19, telemetry, NIHSS q4 hours; SBP goal 160-200 mmHg and DBP 80-100 mmHg for 24 hours. Statin therapy for a goal LDL of 70, when patient passes swallow evaluation. PT/OT/ST/Swallow evaluation. Long-term risk-factor modification, including a strict diet/exercise regimen for secondary stroke prophylaxis. Stroke education prior to discharge 2. Seizure d/o - increase keppra from 500 mg to 1000 mg po bid; eeg; seizure precautions/restrictions including no driving until cleared by a neurologist. 3. Syncope - cta head/neck w/ wo contrast negative; non-neurogenic workup per primary team. 4. Hypertension - permissive htn for 24 hours. 5. Left-sided weakness/numbness - pt/ot evaluation/monitoring. Russ Breaux MD Neurology
[2022-04-14] MEDS: SODIUM CHLORIDE 0.9% 1000 ML 1,000 ML IV SCH (05:43)
[2022-04-14] MEDS: ASPIRIN 325 MG TAB PO SCH (09:35)
[2022-04-14] MEDS: levETIRAcetam 500 MG TAB PO SCH ×2 (09:36→21:22)
[2022-04-14] MEDS: FAMOTIDINE 20 MG TAB PO SCH ×2 (09:36→21:22)
[2022-04-14] MEDS: ESCITALOPRAM 10 MG TAB PO SCH (09:36)
[2022-04-14] MEDS: ENOXAPARIN 40 MG/0.4 ML INJ SUB-Q SCH (09:36)
--- NOTE | 2022-04-14 11:56 | Magnetic Resonance Report ---
MRI CERVICAL SPINE WITHOUT CONTRAST INDICATION / CLINICAL INFORMATION: left arm weakness. TECHNIQUE: Multisequence, multiplanar images of the cervical spine were obtained. COMPARISON: None available. FINDINGS: CRANIOCERVICAL JUNCTION:No significant abnormality. ALIGNMENT: No significant abnormality. VERTEBRAE:Normal marrow signal and vertebral body height for age. DISCS: There is moderate diffuse disc desiccation and narrowing. VISUALIZED SPINAL CORD: No abnormal cord signal. [id number] ANALYSIS: C2-3: No significant disc abnormality, spinal canal stenosis, or neural foraminal stenosis. C3-4: There is moderate posterior spurring which abuts the anterior surface of the spinal cord. There is moderate spinal canal narrowing measuring 7 mm in AP dimension. There is moderate to severe bilat eral uncovertebral spurring resulting in moderate to severe bilateral neural foraminal narrowing. C4-5: There is mild to moderate posterior spurring resulting in mild central canal stenosis. There is moderate bilateral uncovertebral spurring resulting in moderate to severe bilateral neural foraminal narrowing. The right side appears slightly more affected. C5-6: There is mild bilateral uncovertebral spurring. Mild facet arthropathy. Mild bilateral neural f oraminal narrowing. C6-7: No significant disc abnormality, spinal canal stenosis, or neural foraminal stenosis. C7-T1: No significant disc abnormality, spinal canal stenosis, or neural foraminal stenosis. PARASPINAL SOFT TISSUES: No significant abnormality. ADDITIONAL FINDINGS: None. IMPRESSION: Moderate cervical spondylosis as described which appears most pronounced at C3-4 and C4-5. See above. Signer Name: Erik Hsu Jr, MD Signed: 04/14/2022 11:52 AM Workstation Name: [id number]
--- NOTE | 2022-04-14 12:09 | Magnetic Resonance Report ---
MRI LUMBAR SPINE WITHOUT CONTRAST INDICATION / CLINICAL INFORMATION: low back pain with bilateral leg numbness/weakness. TECHNIQUE: Multisequence, multiplanar images of the lumbar spine were obtained. COMPARISON: None available. FINDINGS: ALIGNMENT: There is normal lumbar lordosis. Minimal levocurvature of the lumbar spine is present on t he localizer image. No evidence for subluxation. VERTEBRAE:No evidence for fracture or bone lesion. Modic type 2 endplate changes are noted at L4-5. DISCS: There is diffuse disc desiccation with moderate disc space narrowing at L4-5 and L5-S1. VISUALIZED SPINAL CORD: No significant abnormality. The conus terminates at the level of L1-2. [id number] ANALYSIS: L1-2: No significant abnormality. L2-3: No significant abnormality. Mild facet arthropathy. L3-4: No significant abnormality. Mild facet arthropathy and hypertrophy ligamentum flavum. L4-5: Moderate circumferential spurring. Moderate facet arthropathy and moderate hypertrophy ligament um flavum. There is moderate central canal narrowing. Moderate to severe right neural foraminal narro wing. Mild left neural foraminal narrowing. L5-S1: Moderate diffuse posterior bulging disc is present which lateralizes to the left side. Focal m idline annular tear is identified. There is moderate facet arthropathy and hypertrophy ligamentum fla vum. There is moderate to severe central canal narrowing. There is mild right neural foraminal narrow ing and severe left neural foraminal narrowing. PARASPINAL SOFT TISSUES: No significant abnormality. ADDITIONAL FINDINGS: None. IMPRESSION: Moderate to severe lumbar spondylosis as described with L4-5 and L5-S1 being the most affected level s. See above. Signer Name: Erik Hsu Jr, MD Signed: 04/14/2022 12:05 PM Workstation Name: [id number]
--- NOTE | 2022-04-14 16:55 | Consultation ---
History of Present Illness Consult date: 04/14/22 Reason for Consult: cva Chief complaint: Weakness/Tightness of left > right legs History of present illness: 67 yo female with htn, chf, seizure d/o who presents where she had noticed left ankle tightness and difficult with both her feet, as well as left hand weakness/numbness. However, she notes that the left arm has been acting up off and on again for a few months but it is worse right now compared to the last few days. She is not sure if she has a diagnosis of carpal tunnel on the left. She notes chronic neck pain and lower back pain. She also notes a sense of swelling of her bilateral legs. She also suffered an episode of loss of consciousness while at the physician's office, which she states is typical of her seizure. She also notes dyspnea with exertion. Past History Past Medical History: hypertension, seizures, other (chf;) Past Surgical History: Other (no relevant surgical history) Social history: no significant social history, other (no recreational drugs;) Family history: no significant family history Medications and Allergies Allergies Allergy/AdvReac Type Severity Reaction Status Date / Time No Known Allergies Allergy Verified 04/12/22 13:04 Home Medications Medication Instructions Recorded Confirmed Last Taken Type Aspirin EC [Halfprin EC] 81 mg PO DAILY #100 tablet 04/29/20 04/14/22 Unknown Rx Escitalopram Oxalate [Lexapro] 20 mg PO DAILY #30 04/29/20 04/14/22 Unknown Rx levETIRAcetam [Keppra TAB] 500 mg PO BID #60 tablet 04/29/20 04/14/22 Unknown Rx Permethrin 5% [Acticin 5% CREAM] 1 applicatio TP ONCE #1 tube 10/23/20 04/14/22 Unknown Rx Prednisone [predniSONE 5 mg (6-Day 5 mg PO .TAPER #1 tab.ds.pk 10/23/20 04/14/22 Unknown Rx Pack, 21 Tabs)] Active Meds: Active Medications Acetaminophen (Acetaminophen 325 Mg Tab) 650 mg PO Q4H PRN PRN Reason: Pain MILD(1-3)/Fever >100.5/NIETO Aspirin (Aspirin 325 Mg Tab) 325 mg PO QDAY [facility] Last Admin: 04/14/22 09:35 Dose: 325 mg Atorvastatin Calcium (Atorvastatin 40 Mg Tab) 40 mg PO QHS [facility] Last Admin: 04/13/22 22:59 Dose: 40 mg Enoxaparin Sodium (Enoxaparin 40 Mg/0.4 Ml Inj) 40 mg SUB-Q QDAY [facility] Last Admin: 04/14/22 09:36 Dose: 40 mg Escitalopram Oxalate (Escitalopram 10 Mg Tab) 20 mg PO DAILY [facility] Last Admin: 04/14/22 09:36 Dose: 20 mg Famotidine (Famotidine 20 Mg Tab) 20 mg PO BID [facility] Last Admin: 04/14/22 09:36 Dose: 20 mg Sodium Chloride (Nacl 0.9% 1000 Ml) 1,000 mls @ 75 mls/hr IV DIRECT [facility] Last Admin: 04/14/22 05:43 Dose: 75 mls/hr Levetiracetam (Levetiracetam 500 Mg Tab) 1,000 mg PO BID [facility] Last Admin: 04/14/22 09:36 Dose: 1,000 mg Metoclopramide HCl (Metoclopramide 10 Mg/2 Ml Inj) 10 mg IV Q6H PRN PRN Reason: Nausea And Vomiting Last Admin: 04/12/22 23:25 Dose: 10 mg Morphine Sulfate (Morphine 2 Mg/1 Ml Inj) 2 mg IV Q4H PRN PRN Reason: Pain, Moderate (4-6) Morphine Sulfate (Morphine 4 Mg/1 Ml Inj) 4 mg IV Q4H PRN PRN Reason: Pain , Severe (7-10) Ondansetron HCl (Ondansetron 4 Mg/2 Ml Inj) 4 mg IV Q3H PRN PRN Reason: Nausea And Vomiting Sodium Chloride (Sodium Chloride 0.9% 10 Ml Flush Syringe) 10 ml IV BID [facility] Last Admin: 04/14/22 09:37 Dose: 10 ml Sodium Chloride (Sodium Chloride 0.9% 10 Ml Flush Syringe) 10 ml IV PRN PRN PRN Reason: LINE FLUSH Review of Systems All systems: negative (as per hpi;) Physical Examination - Vital Signs Vital Signs: Vital Signs Pulse Resp BP Pulse Ox 72 16 139/56 96 04/12/22 13:03 04/12/22 13:03 04/12/22 13:03 04/12/22 13:03 - Physical Exam Narrative exam: Gen: nad, well-nourished; Head: normocephalic; Eyes: no gaze deviation; no ptosis; ENT: normal vocalization; CVS: warm and well-perfused; Pulm: no respiratory distress; GI: appears non-distended; Ext: no cyanosis appreciated at distal extremities; Skin: no acute rash at distal extremities; Heme: no pathologic ecchymosis appreciated at distal extremities; Neuro: alert, oriented to name, age, month, year, no dysarthria, no aphasia, CN 2 - PERRL, visual baires grossly intact, CN 3, 4, 6 - EOMI, CN 5 - facial sensation symmetric to light touch, CN 7 - facial movement symmetric, CN 8 - hearing grossly intact, CN 9, 10 - uvula midline, CN 11 symmetric shoulder movement, CN 12 - tongue midline; Motor - at least 4-/5 at all exts; Sensory - light touch symmetric w/ ?decreased light touch at left leg, Cerebellar - fnf /hts slowed/intact, Gait - deferred secondary to seizure precautions; Results - Laboratory Findings CBC and BMP: 04/13/22 05:35 04/13/22 05:35 Abnormal Lab Findings: Abnormal Labs 04/12/22 04/12/22 04/12/22 13:28 14:32 16:47 Hgb 14.7 H Hct 43.6 H [place] % (Auto) 9.9 H Potassium 5.6 H Glucose POC Glucose Total Protein Albumin Urine WBC (Auto) 15.0 H 04/12/22 04/13/22 04/13/22 23:35 05:35 05:35 Hgb Hct [place] % (Auto) 10.9 H Potassium Glucose 118 H POC Glucose 119 H Total Protein 6.1 L Albumin 3.7 L Urine WBC (Auto) Assessment and Plan 67 yo right-handed female with htn, chf, seizure d/o who presents where she had noticed left ankle tightness and difficult with both her feet, as well as left hand weakness/numbness. However, she notes that the left arm has been acting up off and on again for a few months but it is worse right now compared to the last few days. She also suffered an episode of loss of consciousness, which she states is typical of her seizure. 1. Left>Right Leg Weakness & Left Hand "Tightness" - mri cervical spine does not correlate with left hand issue; mri lumbar spine wo contrast raises concern at the L5-S1 (recommend outpatient emg-ncv / neurology followup in 2 weeks or transfer to a facility with neurology/neurosurgery); pt/ot evaluation/monitoring. 2. Seizure d/o - increased keppra from 500 mg to 1000 mg po bid yesterday; eeg results pending; seizure precautions/restrictions including no driving until cleared by a neurologist. 3. Syncope (?convulsive) - cta head/neck w/ wo contrast negative; non- neurogenic workup per primary team. 4. Hypertension - permissive htn for 24 hours. 5. CHF Exacerbation / Dyspnea on Exertion - evaluation/management per primary team. 6. Seizure precautions. Russ Breaux MD Neurology [id number]
[2022-04-15] MEDS: ASPIRIN 325 MG TAB PO SCH (09:20)
[2022-04-15] MEDS: FAMOTIDINE 20 MG TAB PO SCH ×2 (09:20→22:11)
[2022-04-15] MEDS: ESCITALOPRAM 10 MG TAB PO SCH (09:20)
[2022-04-15] MEDS: levETIRAcetam 500 MG TAB PO SCH ×2 (09:20→22:14)
[2022-04-15] MEDS: ENOXAPARIN 40 MG/0.4 ML INJ SUB-Q SCH (09:20)
[2022-04-15] MEDS: SODIUM CHLORIDE 0.9% 1000 ML 1,000 ML IV SCH (14:02)
[2022-04-16] MEDS: SODIUM CHLORIDE 0.9% 1000 ML 1,000 ML IV SCH ×2 (01:01→17:24)
[2022-04-16] MEDS: ESCITALOPRAM 10 MG TAB PO SCH (09:30)
[2022-04-16] MEDS: levETIRAcetam 500 MG TAB PO SCH ×2 (09:30→21:32)
[2022-04-16] MEDS: ENOXAPARIN 40 MG/0.4 ML INJ SUB-Q SCH (09:30)
[2022-04-16] MEDS: FAMOTIDINE 20 MG TAB PO SCH ×2 (09:30→21:30)
[2022-04-16] MEDS: ASPIRIN 325 MG TAB PO SCH (09:30)
--- NOTE | 2022-04-17 09:45 | Magnetic Resonance Report ---
MR brain wo con INDICATION / CLINICAL INFORMATION: stroke. TECHNIQUE: Multiplanar, multisequence MR images of the brain were obtained. COMPARISON: 04/29/2020. FINDINGS: INTRACRANIAL: No restricted diffusion. No hemorrhage. Ventricular caliber is normal. No extra-axial c ollection. No mass. No herniation. Major intracranial vascular flow voids are preserved. Small quant ity of periventricular and centrum semiovale T2 white matter hyperintensities most consistent with mi ld sequela of chronic microvascular disease. ORBITS: No significant abnormality of visualized orbits. SINUSES / MASTOIDS: No significant abnormality of visualized sinuses and mastoid air cells. ADDITIONAL FINDINGS: None. IMPRESSION: 1. No significant intracranial abnormality. Signer Name: Yuri Acevedo MD Signed: 04/17/2022 9:40 AM Workstation Name: [id number]
[2022-04-17] MEDS: levETIRAcetam 500 MG TAB PO SCH ×2 (11:51→21:13)
[2022-04-17] MEDS: ENOXAPARIN 40 MG/0.4 ML INJ SUB-Q SCH (11:51)
[2022-04-17] MEDS: ASPIRIN 325 MG TAB PO SCH (11:51)
[2022-04-17] MEDS: ESCITALOPRAM 10 MG TAB PO SCH (11:52)
[2022-04-17] MEDS: FAMOTIDINE 20 MG TAB PO SCH ×2 (11:52→21:14)
[2022-04-18] MEDS: ENOXAPARIN 40 MG/0.4 ML INJ SUB-Q SCH (09:01)
[2022-04-18] MEDS: ESCITALOPRAM 10 MG TAB PO SCH (09:01)
[2022-04-18] MEDS: ASPIRIN 325 MG TAB PO SCH (09:02)
[2022-04-18] MEDS: levETIRAcetam 500 MG TAB PO SCH (09:02)
[2022-04-18] MEDS: FAMOTIDINE 20 MG TAB PO SCH (09:02)
--- NOTE | 2022-04-18 13:56 | Discharge Summary ---
Providers - Providers Date of Admission: 04/12/22 17:03 Date of discharge: 04/18/22 Attending physician: AUGUSTUS GRANT 04/12/22 21:32 Consult to Physician [CONS] Routine Comment: Consulting Provider: KAMILA PRETTY Physician Instructions: Reason For Exam: cva 04/12/22 21:38 Occupational Therapy Evaluate and Treat [CONS] Routine Comment: Reason For Exam: Neuro deficits Physical Therapy Evaluation and Treat [CONS] Routine Comment: Reason For Exam: Neuro deficits Primary care physician: STOGY ROLLER Hospitalization Condition: Stable Hospital course: 67 yo right-handed female with htn, chf, seizure d/o who presents where she had noticed left ankle tightness and difficult with both her feet, as well as left hand weakness/numbness. However, she notes that the left arm has been acting up off and on again for a few months but it is worse right now compared to the last few days. She also suffered an episode of loss of consciousness, which she states is typical of her seizure. She was admitted to the hospital, neurology was consulted. She was further evaluated by CT head CTA head and neck and brain MRI. She also had lumbar spine and cervical spine MRI. She was seen by neurologist. She was placed on Keppra and increased the dose from 500 to 1000 mg twice daily. Neurology recommended to follow-up with a neurology in 2 weeks for possible EMG-ncv study for L5-S1 moderate diffuse posterior bulging disc. Patient was further evaluated by physical therapy and recommended home health PT OT and recommended assisted living. Patient was then discharged home in stable condition with outpatient neurology follow-up. Disposition: HOME HEALTH CARE SERVICE Final Discharge Diagnosis (Prints w/discharge instructions): 1. Left>Right Leg Weakness & Left Hand "Tightness" likely from L4-S1 disk protrusion. 2. Seizure d/o. 3. Convulsive Syncope. 4. Hypertension. 6. Dyspnea likely from obesity hypoventilation syndrome Time spent for discharge: 34 minutes Core Measure Documentation - Palliative Care Palliative Care/ Comfort Measures: Not Applicable - Core Measures Any of the following diagnoses?: none Exam - Physical Exam Narrative exam: GENERAL: well-developed and morbidly obese -[place] female lying on bed appeared to be in no discomfort. HEENT: Normocephalic. Atraumatic. No conjunctival congestion or icterus. Patient has moist mucous membranes. NECK: Supple. Trachea midline. CHEST/LUNGS: Clear to auscultated bilaterally, breathing nonlabored. No wheezes crackles or rhonchi. HEART/CARDIOVASCULAR: Regular in rate and rhythm. S1 and S2 positive. ABDOMEN: Abdomen is soft, nontender. Patient has normal bowel sounds. SKIN: There is no rash. Warm and dry. NEURO: No focal motor deficit. Follows command. Generalized weakness MUSCULOSKELETAL: No joint effusion or tenderness. EXTRIMITY: No edema, no cyanosis or clubbing. PSYCH: Cooperative. - Constitutional Vitals: Temp Pulse Resp BP Pulse Ox 98.9 F 62 18 106/45 96 04/18/22 05:16 04/18/22 09:05 04/18/22 09:45 04/18/22 09:05 04/18/22 09:46 Plan Activity: fall precautions Weight Bearing Status: Non-Weight Bearing Diet: low fat, low salt Additional Instructions: F/u with neurologist as outpt in 2 weeks for EMG study Follow up with: PRIMARY CARE, [Primary Care Provider] - 3-5 Days Prescriptions: traMADoL [Ultram 50 MG tab] 50 mg PO Q6HR PRN #14 tablet PRN Reason: Pain
[2022-04-18 16:28] VITALS: BP 104/56
--- NOTE | 2022-04-20 07:33 | Progress Note ---
Assessment and Plan - Patient Problems (1) Acute CVA (cerebrovascular accident) Status: Acute Plan to address problem: MRI did not show any acute infarct MR C-spine and L-spine showed some spondylosis and degenerative changes Neurology consult appreciated Speech eval Aspirin Physical therapy and Occupational Therapy (2) Hypertension Status: Chronic Qualifiers: Hypertension type: primary hypertension Qualified Code(s): I10 - Essential (primary) hypertension Plan to address problem: Continue antihypertensives and adjust medications as necessary (3) CHF (congestive heart failure) Status: Chronic Qualifiers: Heart failure type: right heart failure due to left heart failure Qualified Code(s): I50.814 - Right heart failure due to left heart failure Plan to address problem: Continue Lasix (4) Seizure disorder Status: Chronic Plan to address problem: Continue Keppra 5 mg twice a day (5) Depression Status: Chronic Qualifiers: Depression Type: unspecified Qualified Code(s): F32.A - Depression, unspecified Plan to address problem: Continue Lexapro (6) DVT prophylaxis Status: Acute Plan to address problem: On heparin GI prophylaxis (7) Advance care planning Status: Acute Plan to address problem: Disease education conducted, care plan discussed, diagnosis discussed and prognosis discussed. Patient acknowledged understanding of the plan. +30 minutes. Patient is full code. Subjective Date of service: 04/13/22 Principal diagnosis: Acute CVA Interval history: History of present illness: Patient is a 67-year-old female brought in from doctor's office for evaluation of left-sided weakness for the past week involving her arm and leg. Also has syncopal event at doctor's office. Objective - Constitutional General appearance: Present: no acute distress, well-nourished - EENT Eyes: PERRL, EOM intact ENT: hearing intact, clear oral mucosa Ears: bilateral: normal - Neck Neck: supple, normal ROM - Respiratory Respiratory effort: normal Respiratory: bilateral: CTA - Breasts Breasts: normal - Cardiovascular Rhythm: regular Heart Sounds: Present: S1 & S2. Absent: gallop, rub Extremities: pulses intact, No edema, normal color, Full ROM - Gastrointestinal General gastrointestinal: Present: soft, non-tender, non-distended, normal bowel sounds - Genitourinary Female genitourinary: normal - Integumentary Integumentary: clear, warm, dry - Musculoskeletal Musculoskeletal: 1, strength equal bilaterally - Neurologic Neurologic: focal deficits (Left upper and L lower exremity weakness) - Psychiatric Psychiatric: memory intact, appropriate mood/affect, intact judgment & insight - Allied health notes Allied health notes reviewed: nursing, PT, OT, case management - Labs CBC & Chem 7: 04/13/22 05:35 04/13/22 05:35 Labs: MRI brain No significant intracranial abnormality Lumbar MRI Final impression moderate to severe lumbar spondylosis as described with L4-L5 and S L5-S1 being the most affected levels Cervical spine ER MRI Moderate cervical spondylosis as described which appears to be most pronounced at C3-C4 and C4-C5 04/13/2020 bilateral HEART Score - HEART Score Age: > 65 Risk factors: 1-2 risk factors Troponin: Troponin T < 0.010 ng/mL (0.00-0.029) 04/12/22 13:28 Troponin: < normal limit - Critical Actions Critical Actions: 0-3 pts:0.9-1.7%risk of adverse cardiac event.Candidate for discharge
--- NOTE | 2022-04-20 07:34 | Progress Note ---
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 Qualified Code(s): I50.814 - Right heart failure due to left heart failure Plan to address problem: Continue Lasix (4) Seizure disorder Status: Chronic Plan to address problem: Continue Keppra 5 mg twice a day (5) Depression Status: Chronic Qualifiers: Depression Type: unspecified Qualified Code(s): F32.A - Depression, unspecified Plan to address problem: Continue Lexapro (6) DVT prophylaxis Status: Acute Plan to address problem: On heparin GI prophylaxis (7) Advance care planning Status: Acute Plan to address problem: Disease education conducted, care plan discussed, diagnosis discussed and prognosis discussed. Patient acknowledged understanding of the plan. +30 minutes. Patient is full code. Subjective Date of service: 04/14/22 Principal diagnosis: Acute CVA Interval history: History of present illness: Patient is a 67-year-old female brought in from doctor's office for evaluation of left-sided weakness for the past week involving her arm and leg. Also has syncopal event at doctor's office. 04/13/2022 MRI negative Left-sided weakness persists 04/14/2022 Neurology consult appreciated Objective - Constitutional General appearance: Present: no acute distress, well-nourished - EENT Eyes: PERRL, EOM intact ENT: hearing intact, clear oral mucosa Ears: bilateral: normal - Neck Neck: supple, normal ROM - Respiratory Respiratory effort: normal Respiratory: bilateral: CTA - Breasts Breasts: normal - Cardiovascular Rhythm: regular Heart Sounds: Present: S1 & S2. Absent: gallop, rub Extremities: pulses intact, No edema, normal color, Full ROM - Gastrointestinal General gastrointestinal: Present: soft, non-tender, non-distended, normal bowel sounds - Genitourinary Female genitourinary: normal - Integumentary Integumentary: clear, warm, dry - Musculoskeletal Musculoskeletal: 1, strength equal bilaterally - Neurologic Neurologic: focal deficits (Left upper extremity and left lower extremity weakness present) - Psychiatric Psychiatric: memory intact, appropriate mood/affect, intact judgment & insight - Labs CBC & Chem 7: 04/13/22 05:35 04/13/22 05:35 HEART Score - HEART Score Age: > 65 Risk factors: 1-2 risk factors Troponin: Troponin T < 0.010 ng/mL (0.00-0.029) 04/12/22 13:28 Troponin: < normal limit - Critical Actions Critical Actions: 0-3 pts:0.9-1.7%risk of adverse cardiac event.Candidate for discharge
--- NOTE | 2022-04-20 07:37 | Progress Note ---
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 Qualified Code(s): I50.814 - Right heart failure due to left heart failure Plan to address problem: Continue Lasix (4) Seizure disorder Status: Chronic Plan to address problem: Continue Keppra 5 mg twice a day (5) Depression Status: Chronic Qualifiers: Depression Type: unspecified Qualified Code(s): F32.A - Depression, unspecified Plan to address problem: Continue Lexapro (6) DVT prophylaxis Status: Acute Plan to address problem: On heparin GI prophylaxis (7) Advance care planning Status: Acute Plan to address problem: Disease education conducted, care plan discussed, diagnosis discussed and prognosis discussed. Patient acknowledged understanding of the plan. +30 minutes. Patient is full code. Subjective Date of service: 04/14/22 Principal diagnosis: Acute CVA Interval history: History of present illness: Patient is a 67-year-old female brought in from doctor's office for evaluation of left-sided weakness for the past week involving her arm and leg. Also has syncopal event at doctor's office. 04/13/2022 through Patient continued to be weak on the left side MRI negative for brain infarct Objective - Constitutional General appearance: Present: no acute distress, well-nourished - EENT Eyes: PERRL, EOM intact ENT: hearing intact, clear oral mucosa Ears: bilateral: normal - Neck Neck: supple, normal ROM - Respiratory Respiratory effort: normal Respiratory: bilateral: CTA - Breasts Breasts: normal - Cardiovascular Heart rate: 78 Rhythm: regular Heart Sounds: Present: S1 & S2. Absent: gallop, rub Extremities: pulses intact, No edema, normal color, Full ROM - Gastrointestinal General gastrointestinal: Present: soft, non-tender, non-distended, normal bowel sounds - Genitourinary Female genitourinary: normal - Integumentary Integumentary: clear, warm, dry - Musculoskeletal Musculoskeletal: 1, strength equal bilaterally - Neurologic Neurologic: focal deficits (Left upper extremity and left lower extremity weakness present.), moves all extremities - Psychiatric Psychiatric: memory intact, appropriate mood/affect, intact judgment & insight - Labs CBC & Chem 7: 04/13/22 05:35 04/13/22 05:35 HEART Score - HEART Score Age: > 65 Risk factors: 1-2 risk factors Troponin: Troponin T < 0.010 ng/mL (0.00-0.029) 04/12/22 13:28 Troponin: < normal limit - Critical Actions Critical Actions: 0-3 pts:0.9-1.7%risk of adverse cardiac event.Candidate for discharge
--- NOTE | 2022-04-20 07:41 | Progress Note ---
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 Qualified Code(s): I50.814 - Right heart failure due to left heart failure Plan to address problem: Continue Lasix (4) Seizure disorder Status: Chronic Plan to address problem: Continue Keppra 5 mg twice a day (5) Depression Status: Chronic Qualifiers: Depression Type: unspecified Qualified Code(s): F32.A - Depression, un specified Plan to address problem: Continue Lexapro (6) DVT prophylaxis Status: Acute Plan to address problem: On heparin GI prophylaxis (7) Advance care planning Status: Acute Plan to address problem: Disease education conducted, care plan discussed, diagnosis discussed and prognosis discussed. Patient acknowledged understanding of the plan. +30 minutes. Patient is full code. Subjective Date of service: 05/17/22 Principal diagnosis: 04/16/2022 Interval history: History of present illness: Patient is a 67-year-old female brought in from doctor's office for evaluation of left-sided weakness for the past week involving her arm and leg. Also has syncopal event at doctor's office. Objective - Constitutional General appearance: Present: no acute distress, well-nourished - EENT Eyes: PERRL, EOM intact ENT: hearing intact, clear oral mucosa Ears: bilateral: normal - Neck Neck: supple, normal ROM - Respiratory Respiratory effort: normal Respiratory: bilateral: CTA - Breasts Breasts: normal - Cardiovascular Heart rate: 78 Rhythm: regular Heart Sounds: Present: S1 & S2. Absent: gallop, rub Extremities: pulses intact, No edema, normal color, Full ROM - Gastrointestinal General gastrointestinal: Present: soft, non-tender, non-distended, normal bowel sounds - Genitourinary Female genitourinary: normal - Integumentary Integumentary: clear, warm, dry - Musculoskeletal Musculoskeletal: 1, strength equal bilaterally - Neurologic Neurologic: focal deficits (Left upper extremity and left lower extremity weakness present.), moves all extremities - Psychiatric Psychiatric: memory intact, appropriate mood/affect, intact judgment & insight - Labs CBC & Chem 7: 04/13/22 05:35 04/13/22 05:35 HEART Score - HEART Score Age: > 65 Risk factors: 1-2 risk factors Troponin: Troponin T < 0.010 ng/mL (0.00-0.029) 04/12/22 13:28 Troponin: < normal limit - Critical Actions Critical Actions: 0-3 pts:0.9-1.7%risk of adverse cardiac event.Candidate for discharge
== END 2022-04-18 17:20 | disposition home health service (06) | DRG 552 ==
LOC: ED 12:47 → 3A 17:03
PROVIDERS: ADMIT Internal Medicine; ATTEND Internal Medicine
DX: M51.27 Other intervertebral disc displacement, lumbosacral region (principal); E66.2 Morbid (severe) obesity with alveolar hypoventilation; I11.0 Hypertensive heart disease with heart failure; E87.5 Hyperkalemia; F32.A Depression, unspecified; I50.814 Right heart failure due to left heart failure; G40.909 Epilepsy, unspecified, not intractable, without status epilepticus; Z68.39 Body mass index [BMI] 39.0-39.9, adult; Z79.82 Long term (current) use of aspirin; Z90.710 Acquired absence of both cervix and uterus
CPT/HCPCS: 36415; 70450; 70496; 70498; 70551; 72141; 72148; 80048; 80053; 80061; 80307; 81001; 82550; 82553; 82962; 84484; 85025; 85610; 85670; 85730; 87086; 93005; 93306; 99285; G0378; C8929; J1650; J2765; J7030; Q9967